=== PATIENT | male | born 1950 | race Hispanic/Latino ===

== ENCOUNTER 2023-10-08 22:08 | Emergency (ER) | payer MEDICARE, SELFPAY ==
[2023-10-08 22:11] VITALS: BP 167/125
[2023-10-08 22:18] VITALS: BP 167/125
[2023-10-08 22:39] LABS: Hematocrit 47.5 % (39.0-52.0); Mean Corp Hgb Conc. 33.7 g/dL (33.0-37.0); Mean Corpuscular Hgb 30.4 pg (27.0-31.0); Mean Corpuscular Volume 90.1 fL (80.0-94.0); Mean Platelet Volume 10.2 fL (7.4-10.4); Platelet Count 305 10^3/uL (130-400); Red Blood Cell Count 5.27 10^6/uL (4.70-6.10); Red Cell Dist. Width 12.5 % (11.5-14.5); White Blood Cell Count 11.7 10^3/uL (4.8-10.8)
[2023-10-08 23:00] VITALS: BP 119/69
[2023-10-08 23:02] LABS: Troponin I < 0.012 ng/ml
--- NOTE | 2023-10-08 23:13 | ED.GENMED ---
History of Present Illness
General
Chief Complaint: Change in Mental Status
Source: patient and records
Time Seen by Provider: 10/08/23 22:55
Travel History
Have you had any contact with someone who has COVID-19?: No
Do you have any symptoms of coronavirus? Fever > 100 degrees, chills, cough, shortness of breath, sore throat, loss of taste or smell, muscle aches, or headache?: No
History of Present Illness
History of Present Illness:
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 Patient
also has an extensive prior medical history. He was brought to our emergency department because he reportedly had an episode of agitation at the facility where he was transferred to. Patient is now calm and cooperative. He reports left-sided
chest pain without radiation, exacerbating, or relieving factors. It is not pleuritic in nature. It started approximately 3 hours ago. He denies dyspnea, nausea, vomiting, abdominal pain, neck pain, jaw pain, back pain. He does note discomfort
in the left shoulder and left knee. He reports recent fall when he was hospitalized in the other hospital, and points to healing scabs at the left lower extremity. He denies headache, dizziness, new numbness or tingling, fever, cough, sore throat,
rhinorrhea, or other complaints.
Past History
Past History
ED Past Medical History: Other (Hypertension, stroke, diabetes, peripheral arterial disease, CAD, A-fib, ischemic cardiomyopathy)
ED Past Surgical History: Other (Toe amputation)
Phy Exam
Physical Exam
Physical Exam:
GENERAL: Alert , in no apparent distress
EYE: pupils equal and reactive, no photophobia
NECK: Supple, no significant adenopathy.
ENT: o/p clr, mm dry
CARDIAC: Irregularly irregular, slight tachycardic
LUNGS: Clear breath sounds bilaterally, no acute respiratory distress, no wheezes rales or rhonchi noted
ABDOMEN: Soft, without focal tenderness, no r/g,
NEUROLOGICAL: Alert and oriented, no focal neuro deficits with the exception of residual left-sided weakness, speech is slightly slurred
SKIN: Warm and dry, skin intact. Healing scabs noted at left lower extremity without secondary infection
MUSCULOSKELETAL: No edema, well perfused.
PSYCH: Normal and appropriate interaction.
Course
Orders/Labs/Results
Orders:
Orders
10/08/23 22:20
EKG [Electrocardiogram (*1)] Urgent
Reason for Study: Atrial Fibrillation
EKG- Treatment ONCE
10/08/23 22:28
Alcohol Urgent
CMP [Comprehensive Metabolic Panel] Urgent
Complete Blood Count/No Diff Urgent
Troponin I Urgent
10/08/23 23:13
Add On- LAB Urgent
Tests Added?: depakote
10/08/23 23:37
Depakane Urgent
10/08/23 23:44
Add On- LAB Urgent
Tests Added?: alcohol
10/09/23 00:30
CT Head W/o Iv Contrast Stat
Reason For Exam: hx R MCA CVA, now ms change
10/09/23 01:27
UA Reflex to Culture [Urinalysis Reflex To Culture] Stat
Date Specimen was Collected: 10/09/23
Time Specimen was Collected: 01:25
10/09/23 02:45
Troponin I Urgent
Abnormal Lab Results
10/08/2324
22:28 01:27
WBC 11.7 H 10^3/uL
(4.8-10.8)
Chloride 94 L mmol/L
(98-107)
Carbon Dioxide 32 H mmol/L
(22-30)
Glucose 259 H mg/dl
(70-99)
Urine Ketones Trace A
(Negative)
Urine Glucose 3+ A
(Negative)
10/08/23 22:28
10/08/23 22:28
Vital Signs
Initial and Last Documented VS:
Initial Vital Signs
Temp Pulse Resp BP Pulse Ox
98.0 F 113 19 167/125 100
10/08/23 22:11 10/08/23 22:11 10/08/23 22:11 10/08/23 22:11 10/08/23 22:11
Last Documented Vital Signs
Temp Pulse Resp BP Pulse Ox
98.0 F 110 15 119/76 96
10/08/23 22:11 10/09/23 04:45 10/09/23 04:45 10/09/23 02:00 10/09/23 00:30
*Critical Care Note
Total Time (30-74mins, 75-104mins- exclusive of procedures): Not Applicable
Update Note
Update Note:
Patient presents to the Emergency Department with reported agitation____
Number and Complexity of Problems Addressed at the Encounter
� Chronic conditions affecting care:
� Acute Exacerbation and/or Progression of Chronic Illness:
� Differential Diagnosis includes: But not limited to intracerebral bleed, infection, electrolyte abnormality, medication effect, etc.
Amount and/or Complexity of Data to be Reviewed and Analyzed
� I performed an independent evaluation of and my interpretation is:
EKG: Read by me, A-fib with RVR, no acute ischemia
CT: Verbal report from vision radiology 'right MCA territory hypodensity with areas of internal hyperdensity which demonstrates mild mass effect. Findings could represent sequela of acute to subacute infarct with possible small
hemorrhagic transformation. Mild local mass effect. No significant midline shift. No hydrocephalus.'
Xrays:
Laboratory Studies: Generally unremarkable
Other:
� Review of other/old records reveals: Extensive review of patient's discharge from [facility], indicating his prior history as well as his presentation there of altered mental status left-sided facial droop and
left-sided weakness.
� Clinical information was obtained by an independent historian:
� Prescriptions/Medications Considered but not given:
� Further testing considered but not performed:
Risk of Complications and/or Morbidity or Mortality of Patient Management
� Social determinants of health affecting care: Patient is primarily Turkmen-speaking and history was obtained via hotel operations manager via language line.
� Discussion with other providers (PCP, Hospitalists, Consultants, etc):
� Escalation of care including admission/observation vs risk of discharge considered: Although CAT scan shows potential blood, small', his discharge paperwork notes that his MRI showed 'foci of hemorrhage'. In addition, it also
notes that patient has dysarthria which is what I am appreciating here. Therefore, it appears that his CAT scan and slurred speech noted here are consistent with his condition when he was at the other hospital, [facility]. Workup otherwise
unremarkable for acute etiology of his reported aggressiveness and his now complaints of chest pain. Will repeat his troponin to confirm no change.
308 AM Pt was resting comfortably, then asking RN for ?pain meds (She was not sure with language barrier). I again engaged interpretor, pt denies pain except R shoulder and L leg s/p fall at hospital, pain is mild. He is moreso concerned b/c he
hasn't had anything to eat, wants something to eat now. Of note, there are brusies and healing scabs at areas of his mild pain. No new sxs, declines pain meds.
418 am repeat troponin wnl, will d/c with close f/u, transportation arrangements being made.
427AM case d/w social staff worker at ..they describe pt as agitated earlier, taking clothes off, acting out...and family was under impression that pt needs restraints 24/7 which is part of reason pt sent here. Obviously, pt does not exhibit this behavior
in the hours he's been here, and is not a current threat to self or others. I do recommend increasing depakote dosing, a consideration when seen by his physician later this AM.
ED Attending Note
-
Portions of this chart may have been created with voice recognition software.� Occasional wrong word or��sound alike� substitutions may have occurred due to the inherent limitations of voice recognition software.
Discharge Plan
Departure
Patient Disposition: Home (Routine Discharge)
Date of Disposition: 10/09/23
Time of Disposition: 04:18
Patient with high blood pressure during this ER visit?: Yes
Condition: Good
Discharge Problem:
Agitation, Chest pain
Instructions: BLOOD PRESSURE, Chest Pain
Prescriptions:
No Action
clopidogrel 75 mg Tablet
75 mg PO DAILY
bisacodyl 10 mg Suppository
10 mg DC DAILYPRN PRN (Reason: if mom is ineffective)
colchicine 0.6 mg Tablet
0.3 mg PO DAILY
divalproex 125 mg Capsule, Delayed Rel Sprinkle
250 mg PO BID
cyclobenzaprine 5 mg Tablet
5 mg PO Q8H PRN (Reason: muscle spasms)
Hold Instructions: MD to decide if actually needs
apixaban 5 mg Tablet
5 mg PO BID
acetaminophen 325 mg Tablet
650 mg PO Q6H PRN (Reason: mild pain/fever>101)
magnesium hydroxide [Milk of Magnesia] 400 mg/5 mL Suspension
30 ml PO [id number] PRN (Reason: IF NO BM BY 3RD DAY)
tamsulosin 0.4 mg Capsule
0.4 mg PO QPM
metoprolol tartrate 50 mg Tablet
50 mg PO BID
Fleet Enema 19-7 gram/118 mL Enema
118 ml DC DAILY PRN (Reason: if suppository is ineffective)
gabapentin 300 mg Capsule
600 mg PO TID
Hold Instructions: pt had episode of unresponsiveness--med on hold--dose might need adjustment or stop altogether
furosemide 20 mg Tablet
20 mg PO DAILY
lisinopril 2.5 mg Tablet
2.5 mg PO DAILY
escitalopram oxalate 10 mg Tablet
10 mg PO DAILY
ezetimibe 10 mg Tablet
10 mg PO HS
rosuvastatin 40 mg Tablet
40 mg PO HS
empagliflozin 10 mg Tablet
10 mg PO DAILY
Hold Instructions: MD to decide if needs to restart--med currently on hold
lidocaine 4 % Adhesive Patch,Medicated
1 patch topical HS Qty: 5 0RF
insulin aspart U-100 100 unit/mL (3 mL) Insulin Pen
2 unit SC AC Qty: 0 0RF
Insulin Glargine Lantus [Lantus] 15 UNITS
Subcutaneous Insulin Syringe [Syringe-Insulin] 0 UNIT
As Directed mls/hr SC HS
Reason for use: Diabetes
Ordered By: Antionette Heller MD
Last Taken: Unknown
Referrals:
Ramy Nix, DO [Family Provider] -
Activity Restrictions/Additional Instructions:
PLEASE DISCUSS WITH [employer] TREATING PHYSICIAN THE OPTION OF INCREASING HIS DEPAKOTE DOSING. HIS LEVELS TODAY ARE ON THE LOW LEVEL OF THERAPEUTIC (58.7).
Interventions
Interventions:
*Risk Screen - Suicide Last Done: 10/08/23 22:11
*General Assessment Last Done: 10/08/23 22:11
*Neglect/Abuse Screening Last Done: 10/08/23 22:11
ED- Fall Risk Assessment Last Done: 10/09/23 04:54
*ED COVID-19 Vaccine History Last Done: 10/08/23 22:11
*Nursing Disposition Last Done: 10/09/23 04:54
ED- Neurological Assessment Last Done: 10/08/23 22:43
ED Swallowing Screen Last Done: 10/09/23 03:10
Discharge Date and Time
Discharge Date/Time: 10/09/23 05:23
[2023-10-08 23:14] LABS: ALT (SGPT) 23 U/L (0-50); AST (SGOT) 31 U/L (17-59); Albumin 4.1 g/dl (3.5-5.0); Alkaline Phosphatase 118 U/L (38-126); Blood Urea Nitrogen 20 mg/dl (9-20); Calcium 9.9 mg/dl (8.4-10.2); Carbon Dioxide 32 mmol/L (22-30); Chloride 94 mmol/L (98-107); Glucose 259 mg/dl (70-99); Potassium 4.8 mmol/L (3.5-5.1); Sodium 136 mmol/L (135-145); Total Protein 7.2 g/dl (6.3-8.2); eGFR > 60.00
[2023-10-08 23:46] VITALS: BMI 32.9
[2023-10-09 00:11] LABS: Depakane 58.7 ug/ml (50.0-120.0)
[2023-10-09 00:30] VITALS: BP 114/70
[2023-10-09 00:35] LABS: Alcohol None Detected
[2023-10-09 01:38] LABS: Urine Albumin Negative (Neg - Trace); Urine Bilirubin Negative (Negative); Urine Character Clear (Clear); Urine Color Yellow; Urine Glucose 3+ (Negative); Urine Ketone Trace (Negative); Urine Leukocyte Negative (Negative); Urine Nitrite Negative (Negative); Urine Occult Blood Negative (Negative); Urine Urobilinogen Negative (Neg - 1+)
[2023-10-09 02:00] VITALS: BP 119/76
[2023-10-09 03:21] LABS: Troponin I < 0.012 ng/ml
== END 2023-10-09 05:23 | disposition home or self-care (01) ==
LOC: EMR 22:08
PROVIDERS: EMERGENCY PHYSICIAN Emergency Medicine; FAMILY PHYSICIAN Internal Medicine
DX: R07.89 Other chest pain (principal); R45.1 Restlessness and agitation; I10 Essential (primary) hypertension
CPT/HCPCS: 99285; 70450; 80053; 80164; 81003; 82077; 84484; 85027; 93005

== ENCOUNTER 2023-10-12 16:26 | Inpatient (IN) | payer MEDICARE, SELFPAY ==
[2023-10-12] VITALS (13 sets, daily range): BP systolic 83–144; BP diastolic 54–103; BMI 30.1; BMI 29.6
[2023-10-12 11:51] LABS: Glucose - Point of Care 131 mg/dl (70-99)
[2023-10-12 12:24] LABS: % Basophils 0.4 % (0-2); % Eosinophils 0.4 % (0-6); % Immature Granulocytes 0.5 % (0-0.5); % Lymphocytes 18.1 % (20.5-51.1); % Monocytes 5.1 % (1.7-9.3); % Neutrophils 75.5 % (42.2-75.2); Absolute Basophils 0.1 10^3/uL (0-0.2); Absolute Eosinophils 0.1 10^3/uL (0-0.7); Absolute Immature Granulocytes 0.1 10^3/uL (0-0.05); Absolute Lymphocytes 2.9 10^3/uL (1.2-3.4); Absolute Monocytes 0.8 10^3/uL (0.1-0.6); Absolute Neutrophils 11.9 10^3/uL (1.4-6.5); Hematocrit 47.6 % (39.0-52.0); Hemoglobin 16.4 g/dL (13.0-18.0); Mean Corp Hgb Conc. 34.5 g/dL (33.0-37.0); Mean Corpuscular Hgb 30.5 pg (27.0-31.0); Mean Corpuscular Volume 88.6 fL (80.0-94.0); Mean Platelet Volume 10.4 fL (7.4-10.4); Nucleated Red Blood Cells % 0 % (-); Platelet Count 375 10^3/uL (130-400); Red Blood Cell Count 5.37 10^6/uL (4.70-6.10); Red Cell Dist. Width 12.3 % (11.5-14.5); White Blood Cell Count 15.7 10^3/uL (4.8-10.8)
[2023-10-12] MEDS: NSS 1000 IV ×2 (12:40→20:15)
[2023-10-12] MEDS: ZOFRAN 4 MG IV (12:42)
[2023-10-12 12:46] LABS: Lactic Acid 2.5 mmol/L (0.7-2.0)
[2023-10-12 13:35] LABS: ALT (SGPT) 23 U/L (0-50); AST (SGOT) 36 U/L (17-59); Albumin 3.9 g/dl (3.5-5.0); Alkaline Phosphatase 131 U/L (38-126); Blood Urea Nitrogen 25 mg/dl (9-20); Calcium 8.5 mg/dl (8.4-10.2); Carbon Dioxide 19 mmol/L (22-30); Chloride 102 mmol/L (98-107); Estimated Creatinine Clearance 70 ml/min; Glucose 133 mg/dl (70-99); Lipase 95 U/L (23-300); Potassium 4.8 mmol/L (3.5-5.1); Sodium 134 mmol/L (135-145); Total Bilirubin 1.2 mg/dl (0.2-1.3); Total Protein 6.8 g/dl (6.3-8.2); eGFR > 60.00
--- NOTE | 2023-10-12 13:36 | ED.GENMED ---
History of Present Illness
General
Chief Complaint: Abdominal Pain
Source: records and ambulance crew
Exam Limitations: clinical condition
Time Seen by Provider: 10/12/23 11:58
Travel History
Have you had any contact with someone who has COVID-19?: Unable to Answer
Do you have any symptoms of coronavirus? Fever > 100 degrees, chills, cough, shortness of breath, sore throat, loss of taste or smell, muscle aches, or headache?: No
History of Present Illness
History of Present Illness:
73-year-old male who recently presented to [facility]. Patient has been complaining of abdominal pain and rectal pain and began vomiting. EMS did note vomiting. Also found to be a little bit hypotensive. Patient is unable to contribute
significantly to his own history
Past History
Past History
ED Past Medical History: Other (Hypertension, stroke, diabetes, peripheral arterial disease, CAD, A-fib, ischemic cardiomyopathy)
ED Past Surgical History: Other (Toe amputation)
Phy Exam
Physical Exam
Physical Exam:
CONSTITUTIONAL Patient somnolent but responsive to voice. Vital signs reviewed.
HEAD atraumatic, normocephalic.
EYES eyelids normal to inspection, Extraocular muscles intact, Conjunctiva normal, Sclera normal.
NECK normal range of motion, Trachea midline, no jugular venous distention.
RESPIRATORY CHEST No respiratory distress noted, Chest expansion equal, Bilateral breath sounds clear.
CARDIOVASCULAR regular rate and rhythm, Heart sounds normal.
ABDOMEN mild diffuse tenderness, mild distention
UPPER EXTREMITY range of motion normal, Motor strength normal, no cyanosis, no edema.
LOWER EXTREMITY range of motion normal, Motor strength normal, no cyanosis, no edema.
NEURO Speech normal, No focal motor deficits, Webster coma scale 15, Memory normal, Cranial Nerves intact to screening exam.
SKIN skin warm, dry, and normal in color.
PSYCHIATRIC patient oriented to person place and time, Normal affect.
Course
Orders/Labs/Results
Orders:
Orders
10/12/23
Electrocardiogram (*1) Stat
Comment: DONE EMR
10/12/23 12:06
CT Abd/Pel (IV only)-DH only Urgent
Comment:
Reason For Exam: vomiting, abd pain
10/12/23 12:12
Complete Blood Count/With Diff Urgent
Lactic Acid Urgent
10/12/23 12:37
0.9% Sodium Chloride 500 ml [Nss] 500 ml IV BOLUS
Ondansetron Injectable [Zofran] 4 mg IV NOW STA
10/12/23 12:38
0.9% Sodium Chloride 1000 ml [Nss] 1,000 ml IV BOLUS
10/12/23 13:05
Comprehensive Metabolic Panel Urgent
Lipase Urgent
10/12/23 14:08
Straight cath- Treatment ONCE
10/12/23 14:30
Urinalysis Reflex To Culture Urgent
Date Specimen was Collected: 10/12/23
Time Specimen was Collected: 14:18
10/12/23 15:10
Piperacillin/Tazo 3.375 Gram [Zosyn] 3.375 gram in 50 ml IV NOW
10/12/23 15:15
Blood Culture Q30M
FLEX Source: Blood/Venous
Specimen Description:
10/12/23 15:45
Blood Culture Q30M
FLEX Source: Blood/Venous
Specimen Description:
Abnormal Lab Results
10/12/23 10/12/23 10/12/23
11:48 12:12 13:05
WBC 15.7 H 10^3/uL
(4.8-10.8)
Abs Immat Gran (auto) 0.1 H 10^3/uL
(0-0.05)
Absolute Neuts (auto) 11.9 H 10^3/uL
(1.4-6.5)
Absolute Monos (auto) 0.8 H 10^3/uL
(0.1-0.6)
Neutrophils % 75.5 H %
(42.2-75.2)
Lymphocytes % 18.1 L %
(20.5-51.1)
Sodium 134 L mmol/L
(135-145)
Carbon Dioxide 19 L mmol/L
(22-30)
BUN 25 H mg/dl
(9-20)
Glucose 133 H mg/dl
(70-99)
Lactic Acid 2.5 H mmol/L
(0.7-2.0)
Alkaline Phosphatase 131 H U/L
(38-126)
Urine Ketones
Urine Glucose
POC Glucose 131 H mg/dl
(70-99)
10/12/23
14:30
WBC
Abs Immat Gran (auto)
Absolute Neuts (auto)
Absolute Monos (auto)
Neutrophils %
Lymphocytes %
Sodium
Carbon Dioxide
BUN
Glucose
Lactic Acid
Alkaline Phosphatase
Urine Ketones 3+ A
(Negative)
Urine Glucose 3+ A
(Negative)
POC Glucose
10/12/23 12:12
10/12/23 13:05
Vital Signs
Initial and Last Documented VS:
Initial Vital Signs
Pulse Resp
105 23
10/12/23 11:50 10/12/23 11:50
Last Documented Vital Signs
Temp Pulse Resp BP Pulse Ox
97.5 F 96 19 98/54 97
10/12/23 11:55 10/12/23 13:30 10/12/23 13:30 10/12/23 13:00 10/12/23 14:32
MDM/Problems Addressed
MDM/Problems Addressed:
vomiting, possible colitis
*Radiology
Radiology exam reviewed: radiology read reviewed
*Pulse Oximetry
Patient hypoxic: no
*EKG
Interpreted by ED Provider?: Yes
Interpretation: abnormal
Rate: tachycardiac
Rhythm: a-fib
Ischemia: non-specific ST changes
*Therapeutic Case Manager Interpretation
Rate: tachycardiac
Interpretation: abnormal
Rhythm: a-fib
*Critical Care Note
Total Time (30-74mins, 75-104mins- exclusive of procedures): 40 minutes
Data Reviewed
Source: records and ambulance crew
Patient Management
Discussion with other providers: Hospitalist
Escalation/DeEscalation of care consider admission/obs:
73-year-old male presents with hypotension, vomiting and apparent abdominal pain. Blood pressure improved after IV fluids but lactic noted. CT noted. IV antibiotics. Check cultures. Cover with Zosyn. Admit
ED Attending Note
-
Portions of this chart may have been created with voice recognition software.� Occasional wrong word or��sound alike� substitutions may have occurred due to the inherent limitations of voice recognition software.
Discharge Plan
Departure
Patient Disposition: Admit
Date of Disposition: 10/12/23
Time of Disposition: 15:16
Admit to: Telemetry
Presentation/result/management discussed w/ accepting MD/DO: Hospitalist
Discharge Problem:
Vomiting, Acidosis, lactic
Prescriptions:
No Action
clopidogrel 75 mg Tablet
75 mg PO DAILY
bisacodyl 10 mg Suppository
10 mg GA DAILYPRN PRN (Reason: if mom is ineffective)
colchicine 0.6 mg Tablet
0.3 mg PO DAILY
divalproex 125 mg Capsule, Delayed Rel Sprinkle
250 mg PO BID
cyclobenzaprine 5 mg Tablet
5 mg PO Q8H PRN (Reason: muscle spasms)
apixaban 5 mg Tablet
5 mg PO BID
acetaminophen 325 mg Tablet
650 mg PO Q6H PRN (Reason: mild pain/fever>101)
insulin glargine 100 unit/mL Solution
32 unit SC HS
magnesium hydroxide [Milk of Magnesia] 400 mg/5 mL Suspension
30 ml PO [id number] PRN (Reason: IF NO BM BY 3RD DAY)
tamsulosin 0.4 mg Capsule
0.4 mg PO QPM
metoprolol tartrate 50 mg Tablet
50 mg PO BID
Fleet Enema 19-7 gram/118 mL Enema
118 ml GA DAILY PRN (Reason: if suppository is ineffective)
gabapentin 300 mg Capsule
600 mg PO TID
furosemide 20 mg Tablet
20 mg PO DAILY
insulin lispro 100 unit/mL Solution
2 unit SC AC
lisinopril 2.5 mg Tablet
2.5 mg PO DAILY
escitalopram oxalate 10 mg Tablet
10 mg PO DAILY
ezetimibe 10 mg Tablet
10 mg PO HS
rosuvastatin 40 mg Tablet
40 mg PO HS
empagliflozin 10 mg Tablet
10 mg PO DAILY
Referrals:
UNKNOWN,NO INTERVIEW [Family Provider] -
Interventions
Interventions:
*Risk Screen - Suicide Last Done: 10/12/23 11:44
*General Assessment Last Done: 10/12/23 11:44
*ED COVID-19 Vaccine History Last Done: 10/12/23 11:44
SY-Vamsbl-[id number] Assessment Last Done: 10/12/23 11:44
[2023-10-12 14:52] LABS: Urine Albumin Negative (Neg - Trace); Urine Bilirubin Negative (Negative); Urine Character Clear (Clear); Urine Color Yellow; Urine Glucose 3+ (Negative); Urine Ketone 3+ (Negative); Urine Leukocyte Negative (Negative); Urine Nitrite Negative (Negative); Urine Occult Blood Negative (Negative); Urine Urobilinogen Negative (Neg - 1+)
--- NOTE | 2023-10-12 15:20 | HPS.HSE ---
Addendum entered and electronically signed by Jack Leung MD 10/12/23 17:12:
I saw and examined the patient.
The [employer]AR[employer] SCI[employer]ORATORY TECHNICIAN's note was reviewed and I agree with the note.
73-year-old with history of A-fib on Eliquis, recent CVA with minimal left-sided residual weakness, IDDM, essential hypertension, ischemic cardiomyopathy, history of back surgery, hyperlipidemia was sent in from [facility] rehab after patient was
noted to having abdominal discomfort nausea and vomiting. Patient is Citizen Of [place]-speaking and family at bedside was able to provide limited information. Patient was in [facility] in [place] with new diagnosis of CVA. Post improvement patient was
discharged to [facility] on 08 October per my record reviews. Patient had difficult stay and some complaints regarding care. Spouse want patient to be placed in a different rehab. Unable to specify frequency of vomiting although did clarify that
was having excessive vomiting for 2 3 hours and was not able to keep medication down. No reported fever or change in bowel habits. No cardiopulmonary complaints.
HEENT: No pallor, cyanosis, or jaundice. Throat clear.
NECK: Supple. No JVD.
RESPIRATORY: Lungs clear to auscultation.
CVS: S1, S2 normal. RRR. No murmur, rub or gallop.
ABDOMEN: Soft, non-tender. No distension. BS+/normal.
EXTREMITIES: No peripheral cyanosis or edema.
PHARMACY BUYER: AOx3. LUE motor power 4/5.
Acute proctitis
Sepsis POA
-Patient complains of rectal pain
-CT abdomen pelvis showing circumferential wall thickening of rectum with possible diagnosis of inflammatory/infectious proctitis versus malignancy
-Some leukocytosis with associated tachycardia. No reported fever monitor T curve
-Got Zosyn in ER, continue
-CRS evaluation requested as well
Nausea/vomiting
-No signs of obstruction
-On IV Zosyn for proctitis
-Starting on trial of clear liquid diet and as needed Zofran ordered
Recent CVA
-Some left upper extremity weakness on exam.
-Records from [facility] to be obtained
Afib/rvr
-Could not tolerate oral medication in the morning. Restart metoprolol in evening
-Likely driven by sepsis
-Will involve cardiology if not improved in next 24-48 hrs
-Pt/ot eval, family wants different rehab
IDDM
- maintain on home regimen of lantus/ISS
Original Note:
Family Physician
-
Family Physician: NO INTERVIEW UNKNOWN
Chief Complaint
-
rectal pain
vomitting
History of Present Illness
73-year-old male with PMH for HTn, CVA, DM, CAD, atrial ischemic cardiomyopathy presented to us from [place] with rectal pain, abdominal pain associated with nausea and vomiting. patient and family concerned that he he is not getting good care
and not eating and drink since he got there. stated light headed and dizzy. feels like room is spinning. denied fever, chills, chest pain, sob. denied dysuria or hematuria
CT abdomen with 3.6 cm in length segment of mild circumferential wall thickening in the mid rectum. Diagnostic possibilities are (1) rectal adenocarcinoma, (2) infectious or inflammatory proctitis, or (3) under distention of the rectal lumen.
2. � Bilateral adrenal masses measuring 3.0 cm in size on the left and 1.2 cm in size on the right. Diagnostic possibilities are (1) benign adrenal tumors (adenomas) or (2) less likely malignancy (metastatic disease).
he did have elevated wbc, lactic. Received 2 L normal saline in ER. Patient also received Zosyn in ER. Admitting for further management.
Medical History
Past Medical History
Past Medical History: Reports Other
Additional Past Medical History:
Hypertension
CVA
Type 2 diabetes
Coronary artery disease
Atrial fibs
Ischemic cardiomyopathy
Past Surgical History: Reports Other
Additional Past Surgical History:
To amputation
Back surgery
Social History
Tobacco: Non-smoker
Alcohol: None
Drug: None
Personal:
Living: [facility]
Family History
Family History: Not pertinent
Allergies / Home Medications
Allergies reflects when Allergies were last updated in [facility].
Home Medications with original date entered in [facility]
Allergy/Medication List:
Allergies
Allergy/AdvReac Type Severity Reaction Status Date / Time
No Known Allergies Allergy Verified 10/08/23 23:46
Home Medications
acetaminophen 325 mg tablet 650 mg PO Q6H PRN mild pain/fever>101 10/08/23
apixaban 5 mg tablet 5 mg PO BID 10/08/23
bisacodyl 10 mg rectal suppository 10 mg [place] DAILYPRN PRN if mom is ineffective 10/08/23
clopidogrel 75 mg tablet 75 mg PO DAILY 10/08/23
colchicine 0.6 mg tablet 0.3 mg PO DAILY 10/08/23
cyclobenzaprine 5 mg tablet 5 mg PO Q8H PRN muscle spasms 10/08/23
divalproex 125 mg capsule,delayed release sprinkle 250 mg PO BID 10/08/23
empagliflozin 10 mg tablet 10 mg PO DAILY 10/08/23
escitalopram oxalate 10 mg tablet 10 mg PO DAILY 10/08/23
ezetimibe 10 mg tablet 10 mg PO HS 10/08/23
furosemide 20 mg tablet 20 mg PO DAILY 10/08/23
gabapentin 300 mg capsule 600 mg PO TID 10/08/23
insulin glargine 100 unit/mL subcutaneous solution 32 unit SC HS 10/08/23
insulin lispro 100 unit/mL subcutaneous solution 2 unit SC AC 10/08/23
lisinopril 2.5 mg tablet 2.5 mg PO DAILY 10/08/23
magnesium hydroxide 400 mg/5 mL oral suspension (Milk of Magnesia) 30 ml PO [id number] PRN IF NO BM BY 3RD DAY 10/08/23
metoprolol tartrate 50 mg tablet 50 mg PO BID 10/08/23
rosuvastatin 40 mg tablet 40 mg PO HS 10/08/23
sodium phosphates 19 gram-7 gram/118 mL enema (Fleet Enema) 118 ml [place] DAILY PRN if suppository is ineffective 10/08/23
tamsulosin 0.4 mg capsule 0.4 mg PO QPM 10/08/23
Review of Systems
-
Constitutional: Reports No Symptoms
EENT: Reports No Symptoms
Respiratory: Reports No Symptoms
Cardiac: Reports No Symptoms
Abdomen/GI: Reports Abdominal Pain, Nausea, Vomiting and Other (rectal pain)
: Reports No Symptoms
Musculoskeletal: Reports No Symptoms
Skin: Reports No Symptoms
Neurological: Reports No Symptoms
Endocrine: Reports No Symptoms
Hematologic/Lymphatic: Reports No Symptoms
Psych: Reports No Symptoms
Physical Exam
Vital Signs
Vital Signs
Temp Pulse Resp BP Pulse Ox
97.5 F 96 19 98/54 97
10/12/23 11:55 10/12/23 13:30 10/12/23 13:30 10/12/23 13:00 10/12/23 14:32
Physical Exam
General: Well Developed, Well Nourished and No Apparent Distress
HEENT: NormoCephalic, Moist mucous membranes and Atraumatic
Respiratory: Clear
Cardiac: S1/S2 and Regular Rhythm; No Murmur or Rub
GI: Soft, Non Tender, Non Distended and Normal Bowel Sounds; No Organomegaly
Rectal: Deferred by Provider
Musculoskeletal: No Clubbing, No Cyanosis and No Edema
Skin: No Rash
Neuro: AO x 3 and Nonfocal/grossly intact
Psych: Calm
Laboratory Results
-
10/12/23 12:12
10/12/23 13:05
Laboratory Results
Lactic Acid 2.5 mmol/L (0.7-2.0) H 10/12/23 12:12
Total Bilirubin 1.2 mg/dl (0.2-1.3) 10/12/23 13:05
AST 36 U/L (17-59) 10/12/23 13:05
ALT 23 U/L (0-50) 10/12/23 13:05
Alkaline Phosphatase 131 U/L (38-126) H 10/12/23 13:05
Lipase 95 U/L (23-300) 10/12/23 13:05
Data Reviewed
-
CT Scan: Report Reviewed by me
Lab Data: Labs Reviewed by me
Impression/Plan
-
# Abdominal pain/vomiting likely from rectal adenocarcinoma and infectious or inflammatory proctitis
-Sepsis as evident by WBC 15.7, lactic 2.5, hypertension, tachycardia
-Urinalysis negative
-CT abdomen pelvis with impression of 3.6 cm in length segment of mild circumferential wall thickening in the mid rectum. Diagnostic possibilities are (1) rectal adenocarcinoma, (2) infectious or inflammatory proctitis, or (3) under distention of
the rectal lumen.
2. � Bilateral adrenal masses measuring 3.0 cm in size on the left and 1.2 cm in size on the right. Diagnostic possibilities are (1) benign adrenal tumors (adenomas) or (2) less likely malignancy (metastatic disease).
3. � Moderately enlarged prostate gland.
4. � Small hiatal hernia.
5. � Moderate to severe pancreatic parenchymal atrophy (lipomatosis).
6. � Mild diffuse hepatic steatosis.
7. � Left-sided pelvic kidney.
8. � Severe atherosclerotic plaque in the abdominal aorta.
9. � Severe calcific atherosclerotic plaque in the coronary arteries.
10. � Chronic granulomatous disease infection in the chest.
-IV Zosyn continued
-Continue to trend lactic acid
-Monitor WBCs
-clear liquid diet
-colorectal consulted
# Metabolic acidosis likely dehydration
-CO2 15, BUN 25, sodium 134
-Received normal saline 2 L in ER
-Continue to monitor BMP
-normal saline continued
# Atrial for with RVR
-EKG with A-fib with RVR
-hold eliquis
-metoprolol continued with parameters
# Recent CVA
-Physical/Occupational Therapy consulted
-Plavix continued
#: Gout
-Colchicine continued
# Type 2 diabetes
-Sliding scale
-Hold empagliflozin
-glargine 10units at hs
#depression/anxiety
-celexa, divalproex
#hld
-zetia continued
#PAD
=gabapentin
#hxt of hypertension
-At present hypotensive
-Hold lisinopril, furosemide
# BPH
-Flomax continued
# DVT prophylaxis
-SCD
# CODE STATUS-full code
[2023-10-12] MEDS: ZOSYN 50 IV ×2 (15:59→22:43)
[2023-10-12 18:12] LABS: Lactic Acid 2.3 mmol/L (0.7-2.0)
--- NOTE | 2023-10-12 18:42 | PTCARENOTE ---
pt brought up from ED at change of shift. Rapid Afib 115-120's. C/O dizziness. [place] speaking, able to understand very little Irish. lungs diminished B/L on RA. Pt yelling out for water. round obese abd +[id number]. scattered scabs on LLE and LUE.
weak PP trace B/L LE edema. CB in reach.
[2023-10-12] MEDS: NOVOLOG FLEXPEN-LOW RESISTANCE SC (20:09)
[2023-10-12] MEDS: DEPAKOTE SPRINKLE 250 MG PO (20:15)
[2023-10-12] MEDS: FLOMAX 0.400000000000000022 MG PO (20:15)
[2023-10-12] MEDS: LOPRESSOR 50 MG PO (20:15)
[2023-10-12] MEDS: FLUSH (NSS) 2 FLUSH IV ×2 (20:16→22:43)
[2023-10-12 20:54] LABS: Lactic Acid 2.1 mmol/L (0.7-2.0)
[2023-10-12 21:02] LABS: Glucose - Point of Care 195 mg/dl (70-99)
--- NOTE | 2023-10-12 22:00 | PTCARENOTE ---
Admission questions completed via thumb sewer phone. AAOx3. Pt stated his primary care physician is Dione Madden.
[2023-10-12] MEDS: LANTUS 0.100000000000000006 UNITS SC (22:39)
[2023-10-12] MEDS: ZETIA 10 MG PO (22:43)
[2023-10-12] MEDS: NEURONTIN 600 MG PO (22:43)
[2023-10-12] MEDS: CRESTOR 40 MG PO (22:43)
[2023-10-12] MEDS: TYLENOL 650 MG PO (22:43)
[2023-10-13] VITALS (8 sets, daily range): BP systolic 96–155; BP diastolic 54–85; PULSE 95; O2SAT 97
[2023-10-13] MEDS: ZOSYN 50 IV ×4 (04:52→21:38)
[2023-10-13 07:35] LABS: Glucose - Point of Care 86 mg/dl (70-99)
[2023-10-13] MEDS: NOVOLOG FLEXPEN-LOW RESISTANCE SC (07:47)
[2023-10-13] MEDS: COLCHICINE 0.299999999999999989 MG PO (07:50)
[2023-10-13] MEDS: DEPAKOTE SPRINKLE 250 MG PO ×2 (07:50→20:21)
[2023-10-13] MEDS: PLAVIX 75 MG PO (07:50)
[2023-10-13] MEDS: NEURONTIN 600 MG PO ×3 (07:50→21:39)
[2023-10-13] MEDS: LEXAPRO 10 MG PO (07:51)
[2023-10-13] MEDS: LOPRESSOR 50 MG PO ×2 (07:51→20:21)
[2023-10-13 09:54] LABS: Hemoglobin 14.2 g/dL (13.0-18.0); Mean Corp Hgb Conc. 33.8 g/dL (33.0-37.0); Mean Corpuscular Hgb 30.8 pg (27.0-31.0); Mean Corpuscular Volume 91.1 fL (80.0-94.0); Mean Platelet Volume 10.2 fL (7.4-10.4); Platelet Count 338 10^3/uL (130-400); Red Blood Cell Count 4.61 10^6/uL (4.70-6.10); Red Cell Dist. Width 12.4 % (11.5-14.5)
[2023-10-13 10:31] LABS: Blood Urea Nitrogen 21 mg/dl (9-20); Calcium 8.5 mg/dl (8.4-10.2); Carbon Dioxide 23 mmol/L (22-30); Chloride 100 mmol/L (98-107); Estimated Creatinine Clearance 78 ml/min; Glucose 101 mg/dl (70-99); Potassium 4.3 mmol/L (3.5-5.1); Sodium 134 mmol/L (135-145); eGFR > 60.00
[2023-10-13 11:37] LABS: Glucose - Point of Care 228 mg/dl (70-99)
[2023-10-13 11:38] LABS: Glycohemoglobin (HgbA1c) 8.6 % (4.0-5.6)
--- NOTE | 2023-10-13 11:46 | CM ---
Addendum entered by VICKY PintoW 10/13/23 14:55:
Placed a call to [facility] as patient is not a reliable historian, per medical staff. Spoke with Fabiola one of his nurses who was able to provide some information for assessment.
Patient was only at the facility for a week. He is non-ambulatory and w/c bound. He is dependent with ADLs, personal care, bathing, dressing and toileting. Fabiola stated that he was an assist of one with all of the above.
He had to be fed, a pureed think liquid diet. He is incontinent of bowel and bladder.
He is dependent with all grooming.
He was an assist of 2 for bed mobility.
Per attending, family does not want patient to return to [place] and would like for facilities to be faxed in the [facility]. Will attempt to get a hold of patient's family.
Original Note:
Reviewed chart, patient is B[place]ian speaking only. Language line in room. Spoke with attending who stated that he spoke with family and they do not want patient to return to [facility] and would like for him to go to a SNF in [place].
Met with patient to obtain information for assessment. Patient would not wake up. Spoke with RN and gabriel who stated that they also had tried and patient would not wake up for them. Will attempt again later.
Patient will need auth prior to going to a SNF.
Plan: Case management will continue to follow and assist with discharge planning. Patient/family would like for a SNF in [facility].
[2023-10-13] MEDS: NSS 1000 IV (11:49)
[2023-10-13 11:57] LABS: Hepatitis C Antibody Negative (Negative)
--- NOTE | 2023-10-13 12:30 | W.PN.HOSP.TC ---
Today's Communication/Plan
-
for C-scope on Cathleen
Neuro eval
FL diet.
Assessment / Plan
Assessment / Plan
CT head 10/13
Continued evolution of large subacute right MCA territory infarct with hemorrhagic conversion, measuring up to 4.0 x 6.1 x 5.1 cm. This exerts mild mass effect on the underlying right lateral ventricle without significant midline shift or herniation.
The ventricles are otherwise normal in size, configuration, and position for age.� Stable old left occipital lobe infarct. Visualized paranasal sinuses are free of mucosal disease. No depressed calvarial fracture.
CT abd/pelvis
1. � 3.6 cm in length segment of mild circumferential wall thickening in the mid rectum. Diagnostic possibilities are (1) rectal adenocarcinoma, (2) infectious or inflammatory proctitis, or (3) under distention of the rectal lumen.
2. � Bilateral adrenal masses measuring 3.0 cm in size on the left and 1.2 cm in size on the right. Diagnostic possibilities are (1) benign adrenal tumors (adenomas) or (2) less likely malignancy (metastatic disease).
3. � Moderately enlarged prostate gland.
4. � Small hiatal hernia.
5. � Moderate to severe pancreatic parenchymal atrophy (lipomatosis).
6. � Mild diffuse hepatic steatosis.
7. � Left-sided pelvic kidney.
8. � Severe atherosclerotic plaque in the abdominal aorta.
9. � Severe calcific atherosclerotic plaque in the coronary arteries.
10. � Chronic granulomatous disease infection in the chest.

Acute proctitis
Sepsis POA
R/o Rectal/terminal colon malignancy
-Patient complains of rectal pain
-CT abdomen pelvis showing circumferential wall thickening of rectum with possible diagnosis of inflammatory/infectious proctitis versus malignancy
-Some leukocytosis with associated tachycardia.� No reported fever monitor T curve
-Got Zosyn in ER, continue
-CRS evaluated and possible question of rectal/colon cancer , will plan to do C-scope on
Nausea/vomiting -resolved
-No signs of obstruction
-On IV Zosyn for proctitis
-start on FL diet.
Right parietal lobe CVA with hemorrhage
-Some left upper extremity weakness on exam.
-Records from [facility] to be obtained
-CT head 10/13 showing evolving right parietal lobe stroke
-Discussed with neuro and recommended to resume eliquis/plavix post procedure.
Afib/RVR
-Could not tolerate oral medication in the morning.� Restart metoprolol in evening
-Likely driven by sepsis
-Will involve cardiology if not improved in next 24-48 hrs
-Pt/ot eval, family wants different rehab
IDDM
- maintain on home regimen of lantus/ISS
HLD
Obesity
Essential HTN
Chronic leg swelling
DVTPPX- eliquis - on hold
Full code
Care plan discussed with neurology and CRS
Total time spent : 53 mins
Anticipated Discharge: > 48 hours
Subjective/Interval History
-
Date of Service: October 13, 2023
sleeping comfortably in bed
no issues overnight
Objective Data
-
Labs:
Laboratory Results
10/13/23 10/13/23
09:33 09:34
WBC 10.0
Hgb 14.2
Hct 42.0
Plt Count 338
Sodium 134 L
Potassium 4.3
Chloride 100
Carbon Dioxide 23
BUN 21 H
Creatinine 0.9
Glucose 101 H
Calcium 8.5
Vital Signs:
Vital Signs
Temp Pulse Resp BP Pulse Ox
98.8 F 82 17 99/64 95
10/13/23 10:55 10/13/23 10:55 10/13/23 10:55 10/13/23 10:55 10/13/23 10:55
I&O
10/12/23 10/13/23 10/14/23
06:59 06:59 06:59
Intake Total 1730 / 1730
Output Total 750 / 750
Balance 980 / 980
Review of Systems
-
Unable to obtain full review of systems at this time due to: Language Barrier
Physical Exam
-
General: Comfortable; Negative Appears in Distress
HEENT: Negative Oxygen
Respiratory: Clear to Auscultation
Cardiac: Regular Rhythm and S1/S2; Negative Murmur
GI: Soft and Nontender
Musculoskeletal: No Edema
Neuro: Awake, Alert, Oriented and No Motor Deficits
--- NOTE | 2023-10-13 14:04 | CON.CRS ---
Addendum entered and electronically signed by Keith Gomez MD 10/13/23 16:01:
I saw and examined the patient.
The PA's note was reviewed and I agree with the note.
Comment:
Seen in a.m. with PA.
History, vitals, labs, imaging reviewed. Patient seen and examined with the help of the telephone public affairs director.
73-year-old male who is recovering from a CVA at rehab and is on Eliquis and Plavix, who came into the hospital with nausea and vomiting. Denies pain. Admits to some bowel function. CT of the abdomen and pelvis reveals area of thickening of mid
rectum of unclear significance. Possibilities include tumor versus segmental proctitis versus underdistention/spasm. No radiographic evidence for large or small bowel obstruction. The patient has not undergone colonoscopies in the past. Denies
family history of colon cancer. Discussion was had with the patient at the bedside and I recommended that he stay on clears for now, that the blood thinners get held, and that we shoot for tentatively for a colonoscopy to sort this out
further. He is agreeable to this. As an aside, he has a head CT which seems to show hemorrhagic CVA, and neurology input would be reasonable before proceeding with a colonoscopy. I did attempt via phone to correspond with the patient's daughter,
his next of kin. I left a voicemail.
Thanks.
Original Note:
Consultation
-
Date/Time Consultation Requested: 10/13/2023, 16:00
Date/Time Consultation Performed: 10/13/2023, 9:30
Requesting Provider: Roxanne Hines CRNP
Performing Provider: Keith Gomez MD
Reason for Consultation: wall thickening in the mid rectum
Medical History
-
Chief Complaint: nausea/vomiting
History of Present Illness:
Language line used to perform consultation
73-year-old male presents from a [facility] with rectal pain, nausea and vomiting. The patient had recently been discharged from the outside hospital with a diagnosis of a right MCA CVA and was started on Eliquis and Plavix. The patient had a
period of agitation a few days ago while at [facility] and was sent to [place] ER on 10/09/2023. He underwent a CT of the head which showed evolution of the right MCA infarct with some hemorrhagic conversion. The patient was sent back to his
facility after evaluation. He was again brought to the ER yesterday due to complaints of nausea and vomiting and rectal pain. CT of the abdomen and pelvis performed in the ER showed a 3.6 cm segment of mild circumferential wall thickening in the
mid rectum, possibilities include rectal adenocarcinoma or infectious/inflammatory proctitis. There were also bilateral adrenal masses measuring 3 cm in size on the left and 1.2 cm in the right diagnostic possibilities are benign adrenal tumors or
less likely metastatic disease. We have been consulted for further surgical opinion.
Past Medical History
Past Medical History: CAD, CVA, HTN, NIDDM and Other (Atrial fibrilliation, Ischemic cardiomyopathy)
Past Surgical History: Orthopedic (toe amputation)
Social History
Tobacco: Non-Smoker
Alcohol: None
Drug: None
Family History
Family History: Reviewed & Not Pertinent
Allergies / Home Medications
Allergy/AdvReac Type Severity Reaction Status Date / Time
No Known Allergies Allergy Verified 10/08/23 23:46
Medication Instructions Recorded Confirmed Type
acetaminophen 325 mg tablet 650 mg PO Q6H PRN mild 10/08/23 10/12/23 History
pain/fever>101
apixaban 5 mg tablet 5 mg PO BID Blood Clot 10/08/23 10/12/23 History
Prevention/Tx
bisacodyl 10 mg rectal suppository 10 mg [place] DAILYPRN PRN if mom is 10/08/23 10/12/23 History
ineffective
clopidogrel 75 mg tablet 75 mg PO DAILY Blood Clot 10/08/23 10/12/23 History
Prevention/Tx
colchicine 0.6 mg tablet 0.3 mg PO DAILY gout 10/08/23 10/12/23 History
cyclobenzaprine 5 mg tablet 5 mg PO Q8H PRN muscle spasms 10/08/23 10/12/23 History
divalproex 125 mg capsule,delayed 250 mg PO BID Mental Health/Anxiety 10/08/23 10/12/23 History
release sprinkle
empagliflozin 10 mg tablet 10 mg PO DAILY Diabetes 10/08/23 10/12/23 History
escitalopram oxalate 10 mg tablet 10 mg PO DAILY depression 10/08/23 10/12/23 History
ezetimibe 10 mg tablet 10 mg PO HS High Cholesterol 10/08/23 10/12/23 History
furosemide 20 mg tablet 20 mg PO DAILY Fluid 10/08/23 10/12/23 History
Retention/Swelling
gabapentin 300 mg capsule 600 mg PO TID Pain 10/08/23 10/12/23 History
insulin glargine 100 unit/mL 32 unit SC HS Diabetes 10/08/23 10/12/23 History
subcutaneous solution
insulin lispro 100 unit/mL 2 unit SC AC Diabetes 10/08/23 10/12/23 History
subcutaneous solution
lisinopril 2.5 mg tablet 2.5 mg PO DAILY Blood Pressure 10/08/23 10/12/23 History
magnesium hydroxide 400 mg/5 mL 30 ml PO [id number] PRN IF NO BM BY 10/08/23 10/12/23 History
oral suspension (Milk of Magnesia) 3RD DAY
metoprolol tartrate 50 mg tablet 50 mg PO BID Blood Pressure 10/08/23 10/12/23 History
rosuvastatin 40 mg tablet 40 mg PO HS High Cholesterol 10/08/23 10/12/23 History
sodium phosphates 19 gram-7 118 ml [place] DAILY PRN if suppository 10/08/23 10/12/23 History
gram/118 mL enema (Fleet Enema) is ineffective
tamsulosin 0.4 mg capsule 0.4 mg PO QPM Urinary Issue 10/08/23 10/12/23 History
Review of Systems
-
History Source: Patient and Transfer Record
Abdomen/GI: Nausea and Vomiting
: Other (rectal pain)
A 10 point review of systems was completed, and was negative except as per HPI.
Physical Exam
Vital Signs
Temp 98.8 F 10/13/23 10:55
Pulse 82 10/13/23 10:55
Resp Rate 17 10/13/23 10:55
Blood pressure 99/64 10/13/23 10:55
SaO2 95 10/13/23 10:55
10/12/23 10/13/23 10/14/23
06:59 06:59 06:59
Actual Weight 98.883 kg
Body Mass Index (BMI) 29.6
Lab Results / Allergies
10/13/23 09:34
10/13/23 09:33
WBC 10.0 10^3/uL (4.8-10.8) 10/13/23 09:34
Hgb 14.2 g/dL (13.0-18.0) 10/13/23 09:34
Hct 42.0 % (39.0-52.0) 10/13/23 09:34
Plt Count 338 10^3/uL (130-400) 10/13/23 09:34
Abs Immat Gran (auto) 0.1 10^3/uL (0-0.05) H 10/12/23 12:12
Neutrophils % 75.5 % (42.2-75.2) H 10/12/23 12:12
Allergy/AdvReac Type Severity Reaction Status Date / Time
No Known Allergies Allergy Verified 10/08/23 23:46
Physical Exam
General: Well Developed, Well Nourished, No Apparent Distress and Comfortable
GI: Soft, Non Tender and Non Distended
Neuro: Awake, Alert and Oriented
Psych: Calm
Data Reviewed
-
CT Scan: Image Personally Visualized and interpreted and Report Reviewed by me
Labs: Labs Reviewed by me and Discussed with Physician
Old Records: Reviewed
Assessment / Plan
-
Assessment: 73-year-old male with history of a recent right MCA infarct on Xarelto and Plavix, with a finding of mild circumferential wall thickening in the mid rectum found on CT
Plan: Recommend holding Plavix for now. Tentatively will plan on performing a colonoscopy next , 09/25/2023 to further examine the mid rectal area. Remain on clears at this time. We will touch base with his next of kin. Recommend neurology
consultation given recent right MCA infarct on CT with some hemorrhagic conversion.
--- NOTE | 2023-10-13 14:33 | CON.NEURO4 ---
Addendum entered and electronically signed by Dale Cedillo MD 10/13/23 16:22:
Studies reviewed.
I have personally examined the patient. I reviewed and agree with the OCCUPATIONAL HEALTH TECHNICIAN's Note.
My addenda:
Awake, alert, interactive. No acute distress.
Speech intact.
Unable to follow 2-step requests w/o difficulty. No tremor.
Extra-ocular movements grossly intact.
Facial movements full and symmetric. Hearing intact to normal conversational volume.
Normal UE movements bilaterally.
Neck: full ROM.
Chest: no dyspnea
Heart: no JVD
Ext: (-) Clubbing, (-) Cyanosis, (-) Edema
IMPRESSIONS/RECOMMENDATIONS:
Abrupt onset of abdominal dysfunction
With recent right middle cerebral artery ischemic stroke. There are some indications of hemorrhage at the time of ischemic injury
Based on recent evaluation at a [facility] stroke resource center, would not discontinue the patient's combined apixaban and clopidogrel until medical records suggest the alternative should be pursued
Continue divalproex
Continue escitalopram
Continue rosuvastatin
D/W patient / family
Will continue to follow pending results.
Original Note:
Documented by User: Amie Bang NP 10/13/23 15:20
Consultation - Neurology 4
-
CONSULTING PHYSICIAN: Dale Cedillo MD
REFERRING PHYSICIAN: Hospitalists/Dr. Leung
DICTATED BY: KAYDEN Bruner
DATE/TIME OF REQUEST: 10/13/23
DATE/TIME OF CONSULTATION: 10/13/23
Reason for Consultation: CVA with hemorrhagic conversion
History of Present Illness:
This is a 73-year-old male who has presented to the hospital from [facility] with report of nausea, vomiting, and rectal pain. This information is obtained from the patient and his family, we do not have any medical records available. Patient
presented to [facility] about one week ago (around 10/06/23) after collapsing on his left side at home. He was found to have a large ischemic R MCA territory stroke. He was discharged to [facility] rehab a few days later on Eliquis 5mg
BID and Plavix 75mg daily. He presented here on 10/09/23 with report of a fall out of bed and agitation. CT head was obtained and demonstrates a right MCA ischemic stroke with hemorrhagic conversion and an old left occipital ischemic stroke. Patient
was discharged back to [facility] but returned to the ER on 10/12/23 due to nausea, vomiting, and rectal pain. CT abd/pelvis was obtained demonstrates a segment of rectal wall thickening concerning for adenocarcinoma vs proctitis in addition to
bilateral adrenal masses. CT Head was obtained and appears stable from CT head on 10/09/23. Neurology is consulted to confirm stability and evaluation of the safety of patient's use of Eliquis and Plavix. Currently, patient endorses left-sided
weakness and mild neck ache. He denies any headache, dizziness, vision changes, speech/swallow difficulty, numbness, chest pain, palpitations, and shortness of breath.
Past Medical History: Afib, HTN, HLD, CAD, ischemic cardiomyopathy, NIDDM, gout, anxiety, depression
Surgical History: toe amputation
Family History: Reviewed and noncontributory.
Social History: Denies tobacco, alcohol, and illicit drug use.
Allergies: No known allergies.
Home Medications: See below.
Review of Symptoms:
Patient denies any fever, headache, chest pain, shortness of breath, GI or symptoms.
�Per the HPI.�All systems are reviewed negative except above.
Physical Exam:
The patient is afebrile, abdomen is nondistended, breathing is unlabored, skin is warm and dry, no edema.
NIH Stroke Scale:
I performed the NIH stroke scale on the patient on 10/13/23 at 1440. The patient scored 5 points on the NIH stroke scale assessment, which were assigned as follows: See below.
Neurologic Examination:
The patient is awake, alert and oriented x 3. He is able to follow commands and answer questions appropriately. There is no aphasia or dysarthria. On cranial nerve assessment, pupils are 3 mm bilateral, round and reactive to light and
accommodation. Visual espinal are challenging to assess but appear full. Extraocular movements are intact. Facial sensations are intact and bilaterally symmetrical, there is no facial asymmetry. Hearing is intact bilaterally to normal conversation
volume. Tongue palate and uvula are midline. Sternocleidomastoid strengths are full bilaterally. Motor strengths are 5/5 right upper and lower, 4-/5 LUE, and 3/5 LLE on medical research [place] scale. There is drift in the LUE and immediate drift in
the LLE. No involuntary movement noted. Deep tendon reflexes are 1+ bilateral upper and lower extremities and Babinski is absent bilaterally. There was no extinction noted on double simultaneous stimulation. Coordination is intact by finger to nose
bilaterally.
Lab Results: See below.
Neuro Imaging:
1. CT Head 10/09/23: Findings consistent with right MCA infarct. Small amount of internal hemorrhagic conversion. Mild mass effect on adjacent sulci, without midline shift.
Old infarct in the left occipital lobe. Atrophy and suspected small vessel ischemic change.
2. CT Head 10/13/23: Continued evolution of right MCA territory infarct with hemorrhagic conversion.
Differentials for the patient's presentation include:
1. Subacute R MCA territory ischemic stroke with hemorrhagic conversion, appears stable.
2. Old left occipital ischemic stroke.
3. Concern for rectal carcinoma.
Recommendations:
-Records requested from [facility].
-Recommend continuing Eliquis 5mg BID and Plavix 75mg daily until records can be reviewed.
-Very high risk to hold anticoagulation at this point given large stroke one week ago.
-LDL goal <70. Lipid panel pending. Continue rosuvastatin 40mg daily and ezetimibe 10mg daily.
-Goal normoglycemia, hbA1c is 8.6.
-Provide patient with a stroke education packet.
-DVT prophylaxis.
-Please contact our Neurology Service with any questions/concerns.
Discussed patient care with: Dr. Cedillo, the patient, patient's family
NIH Stroke Score
Subsequent NIH Scale
Date of Subsequent NIH Scale: 10/13/23
Time of Subsequent NIH Scale: 14:40
NIH Stroke Score
Level of Consciousness: 0 - Alert
LOC Questions: 0-Answers both correctly
LOC Commands: 0-Performs both correctly
Best Horizontal Gaze: 0-Normal
Visual Espinal: 0=Normal, no visual loss
Facial Palsy: 0=Normal, symmetrical
Motor - Right Arm: 0=No drift 10 seconds
Motor - Left Arm: 1=Drift < 10 seconds
Motor - Right Le-No drift 5 seconds
Motor - Left Le-Partial vs. gravity
Limb Ataxia: 2-Present in two limbs
Sensation: 0-Normal
Best Language: 0-No aphasia
Dysarthria: 0-Normal
Extinction and Inattention: 0-No abnormality
Total Score:: 5
Vital Signs and Labs
-
Vital Signs and Labs:
Vital Signs
Temp Pulse Resp BP Pulse Ox
98.8 F 82 17 99/64 95
10/13/23 10:55 10/13/23 10:55 10/13/23 10:55 10/13/23 10:55 10/13/23 10:55
Lab Results
10/13/23 09:34
10/13/23 09:33
Sodium 134 mmol/L (135-145) L 10/13/23 09:33
Potassium 4.3 mmol/L (3.5-5.1) 10/13/23 09:33
BUN 21 mg/dl (9-20) H 10/13/23 09:33
Glucose 101 mg/dl (70-99) H 10/13/23 09:33
Calcium 8.5 mg/dl (8.4-10.2) 10/13/23 09:33
Medications
-
Active Medications
Generic Name Dose Route Start Last Admin
Trade Name Freq PRN Reason Stop Dose Admin
Acetaminophen 650 mg 10/12/23 18:25 10/12/23 22:43
Acetaminophen 325 Mg Tablet PO 11/09/23 18:24 650 mg
Q6HPRN PRN Administration
mild pain/fever>101
Clopidogrel Bisulfate 75 mg 10/13/23 08:00 10/13/23 07:50
Clopidogrel 75 Mg Tablet PO 11/10/23 07:59 75 mg
DAILY GRETTA Administration
Colchicine 0.3 mg 10/13/23 08:00 10/13/23 07:50
Colchicine 0.6 Mg Tablet PO 11/10/23 07:59 0.3 mg
DAILY GRETTA Administration
Dextrose 12.5 grams 10/12/23 18:25
Dextrose 50% (0.5 Grams/Ml) 50 Ml Syringe IV 11/09/23 18:24
[id number] PRN
hypoglycemia
Protocol
Divalproex Sodium 250 mg 10/12/23 20:00 10/13/23 07:50
Divalproex Sodium 125 Mg Sprinkle Capsule PO 11/09/23 19:59 250 mg
BID GRETTA Administration
Ezetimibe 10 mg 10/12/23 22:00 10/12/23 22:43
Ezetimibe (Zetia) 10 Mg Tablet PO 11/09/23 21:59 10 mg
HS GRETTA Administration
Escitalopram Oxalate 10 mg 10/13/23 08:00 10/13/23 07:51
Escitalopram 10 Mg Tablet PO 11/10/23 07:59 10 mg
DAILY GRETTA Administration
Gabapentin 600 mg 10/12/23 22:00 10/13/23 07:50
Gabapentin 300 Mg Capsule PO 11/09/23 21:59 600 mg
TID GRETTA Administration
Glucagon 1 mg 10/12/23 18:25
Glucagon 1 Mg Vial IM 11/09/23 18:24
PRN PRN
hypoglycemia
Protocol
Sodium Chloride 1,000 mls @ 75 mls/hr 10/12/23 18:25 10/13/23 11:49
Nss IV 1,000 mls
.[id number] GRETTA Administration
Piperacillin Sod/Tazobactam Sod 3.375 gram in 50 mls @ 100 mls/hr 10/12/23 22:00 10/13/23 09:53
Zosyn IV 50 mls
Q6H GRETTA Administration
Insulin Glargine 10 units/ 0.1 mls @ 0 mls/hr 10/12/23 22:00 10/12/23 22:39
Device SC 11/09/23 21:59 0.1 mls
HS GRETTA Administration
As Directed
Insulin Aspart 0 units 10/12/23 18:25 10/13/23 07:47
Insulin Aspart Low Resistance 300 Units/3 Ml Pen.Injctr SC 11/09/23 18:24 Not Given
AC GRETTA
Protocol
Metoprolol Tartrate 50 mg 10/12/23 20:00 10/13/23 07:51
Metoprolol 50 Mg Regular Release Tablet PO 11/09/23 19:59 50 mg
BID RGETTA Administration
Rosuvastatin Calcium 40 mg 10/12/23 22:00 10/12/23 22:43
Rosuvastatin (Crestor) 40 Mg Tablet PO 11/09/23 21:59 40 mg
HS GRETTA Administration
Sodium Chloride 0 flush 10/12/23 19:00 10/12/23 22:43
Sodium Chloride 0.9% (Flush) Syringe IV 11/09/23 18:59 2 flush
PER PROTOCOL GRETTA Administration
Tamsulosin HCl 0.4 mg 10/12/23 18:25 10/12/23 20:15
Tamsulosin 0.4 Mg Capsule PO 11/09/23 18:24 0.4 mg
QPM GRETTA Administration
Home Medications
Medication Instructions Recorded
acetaminophen 325 mg tablet 650 mg PO Q6H PRN mild 10/08/23
pain/fever>101
apixaban 5 mg tablet 5 mg PO BID Blood Clot 10/08/23
Prevention/Tx
bisacodyl 10 mg rectal suppository 10 mg IA DAILYPRN PRN if mom is 10/08/23
ineffective
clopidogrel 75 mg tablet 75 mg PO DAILY Blood Clot 10/08/23
Prevention/Tx
colchicine 0.6 mg tablet 0.3 mg PO DAILY gout 10/08/23
cyclobenzaprine 5 mg tablet 5 mg PO Q8H PRN muscle spasms 10/08/23
divalproex 125 mg capsule,delayed 250 mg PO BID Mental Health/Anxiety 10/08/23
release sprinkle
empagliflozin 10 mg tablet 10 mg PO DAILY Diabetes 10/08/23
escitalopram oxalate 10 mg tablet 10 mg PO DAILY depression 10/08/23
ezetimibe 10 mg tablet 10 mg PO HS High Cholesterol 10/08/23
furosemide 20 mg tablet 20 mg PO DAILY Fluid 10/08/23
Retention/Swelling
gabapentin 300 mg capsule 600 mg PO TID Pain 10/08/23
insulin glargine 100 unit/mL 32 unit SC HS Diabetes 10/08/23
subcutaneous solution
insulin lispro 100 unit/mL 2 unit SC AC Diabetes 10/08/23
subcutaneous solution
lisinopril 2.5 mg tablet 2.5 mg PO DAILY Blood Pressure 10/08/23
magnesium hydroxide 400 mg/5 mL 30 ml PO [id number] PRN IF NO BM BY 10/08/23
oral suspension (Milk of Magnesia) 3RD DAY
metoprolol tartrate 50 mg tablet 50 mg PO BID Blood Pressure 10/08/23
rosuvastatin 40 mg tablet 40 mg PO HS High Cholesterol 10/08/23
sodium phosphates 19 gram-7 118 ml IA DAILY PRN if suppository 10/08/23
gram/118 mL enema (Fleet Enema) is ineffective
tamsulosin 0.4 mg capsule 0.4 mg PO QPM Urinary Issue 10/08/23

Documented by User: Dale Cedillo MD 10/13/23 16:12
NIH Stroke Score
NIH Stroke Score
Total Score:: 5
[2023-10-13] MEDS: NOVOLOG FLEXPEN-LOW RESISTANCE 1 UNITS SC (14:55)
[2023-10-13 16:42] LABS: Glucose - Point of Care 289 mg/dl (70-99)
[2023-10-13] MEDS: FLOMAX 0.400000000000000022 MG PO (17:28)
[2023-10-13] MEDS: NOVOLOG FLEXPEN-LOW RESISTANCE 3 UNITS SC (17:29)
[2023-10-13] MEDS: TYLENOL 650 MG PO (20:21)
[2023-10-13] MEDS: ZETIA 10 MG PO (21:39)
[2023-10-13] MEDS: LANTUS 0.100000000000000006 UNITS SC (21:39)
[2023-10-13] MEDS: CRESTOR 40 MG PO (21:39)
[2023-10-13 21:41] LABS: Glucose - Point of Care 208 mg/dl (70-99)
--- NOTE | 2023-10-13 23:00 | PTCARENOTE ---
Pt complained of 5/10 pain throughout right shoulder. CIVIL DIVISION COMMANDER DEPUTY SHERIFF made aware, new orders provided, see MAR. Will continue to monitor.
[2023-10-13] MEDS: ULTRAM 25 MG PO (23:16)
[2023-10-13] MEDS: LIDOCAINE 4% PATCH 1 PATCH TOPICAL (23:17)
--- NOTE | 2023-10-14 01:00 | PTCARENOTE ---
LUE displayed +2 generalized edema. Fluids paused. IV team notified. IV team assessed L hand IV site at bedside, informed this RN IV site ok to use. LUE elevated on pillow and fluids restarted.
[2023-10-14 03:30] VITALS: BP 118/60
[2023-10-14] MEDS: ZOSYN 50 IV ×4 (04:25→23:20)
[2023-10-14] MEDS: NSS IV (04:25)
--- NOTE | 2023-10-14 05:40 | DOWNTIME ---
There was a REEL Qualified Client Catering And Events Manager Downtime on 10/14/2023 from 0111 to 10/14/2023 at 0405. Downtime documentation of patient's care, including medication administrations, has been reconciled in the electronic record per guidelines. Refer to the
patient's paper chart under the miscellaneous tab to see printed paper medication records and downtime forms.
[2023-10-14 06:35] LABS: Hematocrit 39.6 % (39.0-52.0); Hemoglobin 13.3 g/dL (13.0-18.0); Mean Corp Hgb Conc. 33.6 g/dL (33.0-37.0); Mean Corpuscular Hgb 30.3 pg (27.0-31.0); Mean Corpuscular Volume 90.2 fL (80.0-94.0); Mean Platelet Volume 10.2 fL (7.4-10.4); Platelet Count 306 10^3/uL (130-400); Red Blood Cell Count 4.39 10^6/uL (4.70-6.10); Red Cell Dist. Width 12.5 % (11.5-14.5); White Blood Cell Count 8.1 10^3/uL (4.8-10.8)
[2023-10-14 06:57] LABS: Blood Urea Nitrogen 18 mg/dl (9-20); Calcium 8.2 mg/dl (8.4-10.2); Carbon Dioxide 26 mmol/L (22-30); Chloride 106 mmol/L (98-107); Estimated Creatinine Clearance 78 ml/min; Glucose 123 mg/dl (70-99); HDL Cholesterol 31 mg/dl; LDL Cholesterol, Calculated 23 mg/dl; Potassium 4.1 mmol/L (3.5-5.1); Sodium 135 mmol/L (135-145); Total Cholesterol 70 mg/dl (50-199); Triglyceride 83 mg/dl (10-149); Very Low Density Lipoprotein 16 mg/dl (0-30); eGFR > 60.00
[2023-10-14 07:42] VITALS: BP 107/75
[2023-10-14 07:57] LABS: Glucose - Point of Care 132 mg/dl (70-99)
[2023-10-14] MEDS: NOVOLOG FLEXPEN-LOW RESISTANCE SC ×2 (08:10→15:36)
[2023-10-14] MEDS: TYLENOL 650 MG PO (08:51)
[2023-10-14] MEDS: NEURONTIN 600 MG PO ×3 (08:52→23:26)
[2023-10-14] MEDS: LOPRESSOR 50 MG PO ×2 (08:52→23:34)
[2023-10-14] MEDS: COLCHICINE 0.299999999999999989 MG PO (08:53)
[2023-10-14] MEDS: DEPAKOTE SPRINKLE 250 MG PO ×2 (08:53→23:24)
[2023-10-14] MEDS: LEXAPRO 10 MG PO (08:55)
--- NOTE | 2023-10-14 10:19 | W.PN.CRS1 ---
Today's Communication / Plan
-
Prep today
Clear liquid diet
N.p.o. midnight
colonoscopy tomorrow
Assessment/Plan
-
Assessment: 73-year-old male with history of a recent right MCA infarct on Xarelto and Plavix, with a finding of mild circumferential wall thickening in the mid rectum found on CT
Plan:
1. Will plan for colonoscopy tomorrow afternoon with Dr. Gomez.
2. Remain on clears today. N.p.o. at midnight.
3. Will need to undergo a bowel prep today.
4. Remain off anticoagulation until after procedure.
5. Appreciate neurology consult.
6. Discussed with primary. Will call family later this afternoon.
Subjective Data
Subjective Data
Date of Service: October 14, 2023
Subjective was obtained by Dr. Tillman who spoke in Arabic with the patient.
Patient states he has no abdominal pain. He denies nausea or vomiting. He had a small bowel movement yesterday and none today. He denies any blood in his stool.
Objective Data
-
Vital Signs
Temp Pulse Resp BP Pulse Ox
97.4 F 93 17 107/75 95
10/14/23 07:42 10/14/23 08:52 10/14/23 07:42 10/14/23 08:52 10/14/23 07:42
Intake & Output
10/13/23 10/14/23 10/15/23
06:59 06:59 06:59
Intake Total 1730 / 1730 2990 / 2990
Output Total 750 / 750 1850 / 1850
Balance 980 / 980 1140 / 1140
Intake:
Oral fluids 880 / 880 2190 / 2190
IV fluids (Total) 750 / 750 700 / 700
IV piggybacks 100 / 100 100 / 100
Output:
Urine, Voided 750 / 750 1850 / 1849
Other:
Number of approximated SMALL 1
amounts of urine
Number of approximated LARGE 1
amounts of urine
How many times incontinent 1
SMALL amount urine
How many times incontinent 1
SATURATED amount urine
Number of immeasurable emeses? 1
Lab Results
10/14/23 06:10
10/14/23 06:10
Physical Exam
-
General: No Acute Distress and AOx3
Abdomen: Soft, Non Distended and Non Tender
Skin: Warm and Dry
--- NOTE | 2023-10-14 10:26 | CM ---
Placed a call to admissions at [facility] and spoke with Maty who stated that patient's family had expressed to her that they do not want him to return there as they feel that they need a facility that can more accommodate his behaviors a little
better. She stated that the family speaks [place]. Placed a call to patient's however there was no answer and no voicemail to leave a message. Will attempt another call if no family comes in to visit as patient has not been able to stay awake
or participate in any conversations.
Plan: Case management will continue to follow and assist with discharge planning. Patient will need placement, will talk to family to determine their thoughts.
--- NOTE | 2023-10-14 10:45 | PTCARENOTE ---
pt screaming out in pain. reporting severe pain to B/L LE but reports the left is worse than the right. attending at bedside, x1PRN ordered and administered.
[2023-10-14] MEDS: NSS (PRESERVATIVE FREE) 0.25 ML IV (10:54)
[2023-10-14] MEDS: ATIVAN 0.5 MG IV (10:55)
[2023-10-14] MEDS: DILAUDID 0.5 MG IV (10:55)
[2023-10-14 11:25] VITALS: BP 109/73
[2023-10-14 11:49] LABS: Glucose - Point of Care 292 mg/dl (70-99)
[2023-10-14 12:30] VITALS: BMI 29.7
--- NOTE | 2023-10-14 13:32 | PTCARENOTE ---
pt resting comfortably. DIL calling for update, information passed on to attending
--- NOTE | 2023-10-14 14:04 | W.PN.HOSP.TC ---
Today's Communication/Plan
-
for C-scope tomorrow
LE pain of unclear etiology
Assessment / Plan
Assessment / Plan
CT head 10/13
Continued evolution of large subacute right MCA territory infarct with hemorrhagic conversion, measuring up to 4.0 x 6.1 x 5.1 cm. This exerts mild mass effect on the underlying right lateral ventricle without significant midline shift or herniation.
The ventricles are otherwise normal in size, configuration, and position for age.� Stable old left occipital lobe infarct. Visualized paranasal sinuses are free of mucosal disease. No depressed calvarial fracture.
CT abd/pelvis
1. � 3.6 cm in length segment of mild circumferential wall thickening in the mid rectum. Diagnostic possibilities are (1) rectal adenocarcinoma, (2) infectious or inflammatory proctitis, or (3) under distention of the rectal lumen.
2. � Bilateral adrenal masses measuring 3.0 cm in size on the left and 1.2 cm in size on the right. Diagnostic possibilities are (1) benign adrenal tumors (adenomas) or (2) less likely malignancy (metastatic disease).
3. � Moderately enlarged prostate gland.
4. � Small hiatal hernia.
5. � Moderate to severe pancreatic parenchymal atrophy (lipomatosis).
6. � Mild diffuse hepatic steatosis.
7. � Left-sided pelvic kidney.
8. � Severe atherosclerotic plaque in the abdominal aorta.
9. � Severe calcific atherosclerotic plaque in the coronary arteries.
10. � Chronic granulomatous disease infection in the chest.

Acute proctitis
Sepsis POA
R/o Rectal/terminal colon malignancy
-Patient complains of rectal pain
-CT abdomen pelvis showing circumferential wall thickening of rectum with possible diagnosis of inflammatory/infectious proctitis versus malignancy
-Some leukocytosis with associated tachycardia.� No reported fever monitor T curve
-Got Zosyn in ER, continue
-CRS evaluated and possible question of rectal/colon cancer , will plan to do C-scope on
Nausea/vomiting -resolved
-No signs of obstruction
-On IV Zosyn for proctitis
-start on FL diet.
Right parietal lobe CVA with hemorrhage
-Some left upper extremity weakness on exam.
-Records from [facility] to be obtained
-CT head 10/13 showing evolving right parietal lobe stroke
-Discussed with neuro and recommended to resume eliquis/plavix post procedure.
Afib/RVR
-Restarted metoprolol back. continue monitor on telemetry.
-Likely driven by sepsis
IDDM
- maintain on home regimen of lantus/ISS
Bilateral thigh pain
- sev and sudden onset, no swelling on exam
- suspecting MSK in nature but monitor for reoccurrence
- got 0.5mg dilaudid and sedated from that. would give 0.25mg dilaudid prn if reocurres
HLD
Obesity
Essential HTN
Chronic leg swelling
DVTPPX- eliquis - on hold
Full code
POA updated 10/14
Anticipated Discharge: 24 - 48 hours
Subjective/Interval History
-
Date of Service: October 14, 2023
patient agitated with sev pain in Right thigh and then in left thigh
with language barrier unable to give clear
Objective Data
-
Labs:
Laboratory Results
10/14/23
06:10
WBC 8.1
Hgb 13.3
Hct 39.6
Plt Count 306
Sodium 135
Potassium 4.1
Chloride 106
Carbon Dioxide 26
BUN 18
Creatinine 0.9
Glucose 123 H
Calcium 8.2 L
Vital Signs:
Vital Signs
Temp Pulse Resp BP Pulse Ox
98.0 F 88 16 109/73 95
10/14/23 11:25 10/14/23 11:25 10/14/23 11:25 10/14/23 11:25 10/14/23 11:25
I&O
10/13/23 10/14/23 10/15/23
06:59 06:59 06:59
Intake Total 1730 / 1730 2990 / 2990
Output Total 750 / 750 1850 / 1850
Balance 980 / 980 1140 / 1140
Review of Systems
-
Unable to obtain full review of systems at this time due to: Language Barrier
Physical Exam
-
General: Appears in Distress and Pain
HEENT: Negative Oxygen
Respiratory: Clear to Auscultation
Cardiac: Regular Rhythm and S1/S2; Negative Murmur
GI: Soft and Nontender
Musculoskeletal: No Edema
Neuro: Awake, Alert and No Motor Deficits
[2023-10-14 15:50] VITALS: BP 132/68
[2023-10-14 16:32] LABS: Glucose - Point of Care 205 mg/dl (70-99)
[2023-10-14] MEDS: FLOMAX 0.400000000000000022 MG PO (17:08)
[2023-10-14] MEDS: NOVOLOG FLEXPEN-LOW RESISTANCE 2 UNITS SC (17:18)
--- NOTE | 2023-10-14 17:34 | PTCARENOTE ---
pt has been sleeping and lethargic most afternoon after pain medication administration. Now starting to wake up, asking for dinner. preservationist line used appropriately. pt denies pain at this time. moving him to private room d/t disruptive behaviors
and yelling out over night last night
[2023-10-14] MEDS: NULYTELY SOLUTION 4 LITERS PO (18:12)
[2023-10-14 19:50] VITALS: BP 100/67
[2023-10-14 21:46] LABS: Glucose - Point of Care 218 mg/dl (70-99)
[2023-10-14 23:07] VITALS: BP 151/83
[2023-10-14] MEDS: ZETIA 10 MG PO (23:27)
[2023-10-14] MEDS: LIDOCAINE 4% PATCH 1 PATCH TOPICAL (23:28)
[2023-10-14] MEDS: CRESTOR 40 MG PO (23:29)
[2023-10-14] MEDS: LANTUS 0.100000000000000006 UNITS SC (23:35)
[2023-10-15] VITALS (10 sets, daily range): BP systolic 16–152; BP diastolic 49–109; BMI 29.6
[2023-10-15] MEDS: ZOSYN 50 IV ×4 (04:47→22:17)
--- NOTE | 2023-10-15 05:29 | PTCARENOTE ---
Pt agitated through out shift.Language line used several times to explain the medication is causing cramping/diarrhea.Pt is forgetful,yellig loudly and can be verbally demanding.Pt was transferred to private room 335 and med sitter placed for pt's
safety.Pt is instructed through the language line again about abdomen flatus /loose BM's,No food and colonoscopy.Pt forgets and then refuses pt care.@0540,Pt refused AM labs ,accu check and stated,'No food ,NO'.Pt will yell pee and urinate in
urinal.Pt did drink 1440ml of bowel prep and then refused when abdomen was cramping started.Language line instructed this RN that pt told him his poop smells and he does not like it.
[2023-10-15] MEDS: LOPRESSOR 50 MG PO (08:37)
[2023-10-15] MEDS: DEPAKOTE SPRINKLE 250 MG PO ×2 (08:37→22:25)
[2023-10-15] MEDS: NEURONTIN 600 MG PO ×3 (08:37→22:24)
[2023-10-15] MEDS: COLCHICINE 0.299999999999999989 MG PO (08:38)
[2023-10-15 08:40] LABS: Hematocrit 42.3 % (39.0-52.0); Hemoglobin 14.3 g/dL (13.0-18.0); Mean Corp Hgb Conc. 33.8 g/dL (33.0-37.0); Mean Corpuscular Hgb 30.3 pg (27.0-31.0); Mean Corpuscular Volume 89.6 fL (80.0-94.0); Mean Platelet Volume 9.9 fL (7.4-10.4); Platelet Count 339 10^3/uL (130-400); Red Blood Cell Count 4.72 10^6/uL (4.70-6.10); Red Cell Dist. Width 12.5 % (11.5-14.5); White Blood Cell Count 8.8 10^3/uL (4.8-10.8)
[2023-10-15] MEDS: LEXAPRO 10 MG PO (08:40)
[2023-10-15 09:05] LABS: Depakane 32.6 ug/ml (50.0-120.0)
[2023-10-15 09:18] LABS: Blood Urea Nitrogen 9 mg/dl (9-20); Calcium 8.7 mg/dl (8.4-10.2); Carbon Dioxide 31 mmol/L (22-30); Chloride 103 mmol/L (98-107); Estimated Creatinine Clearance 78 ml/min; Glucose 92 mg/dl (70-99); Potassium 4.1 mmol/L (3.5-5.1); Sodium 138 mmol/L (135-145); eGFR > 60.00
--- NOTE | 2023-10-15 09:38 | W.PN.NEURO.1 ---
Today's Communication / Plan
-
-Acceptable risk from neurologic standpoint for holding Apixaban and Clopidogrel for brief period given the importance of evaluation of abnormal findings of the colon with potential for malignancy and that such a diagnosis cannot be delayed. Would
resume the antithrombotics as soon as possible from procedural perspective
-Goal normotension and normoglycemia
-No other medication changes recommended
-Minimize new sedating medications
-Presence of hemorrhagic conversion in an ischemic stroke weeks ago would not prohibit resuming Eliquis and Clopidogrel, is common after large cortical strokes and essential he be resumed on antithrombotics for secondary prevention of stroke and
ischemic heart disease
Will follow peripherally call with questions and concerns
Neuro Assessment/Plan
Assessment
73 year old man with history of atrial fibrillation, atrial fibrillation, IDDM, hypertension, ischemic cardiomyopathy, recent right MCA stroke in early September presetned to abdominal pain, nausea/vomiting. CT abdomen pelvis showing thickening of
colon concerning for inflammation versus malignancy
Patient was in [facility] in [place] with new diagnosis of CVA on September 28 and was discharged to [facility] on 08 of October
Reviewed CT head with right MCA stroke with type 2 hemorragic infarction
Patient with right MCA syndrome on exam, dysarthria, left arm more than leg weakness, mild [place]-neglect is most likely present
Subjective/Objective
Subjective Data
Date of Service: October 15, 2023
No acute events, planned for colonoscopy today, denies headache, complains of left leg pain
Objective Data
Vital Signs
Temp Pulse Resp BP Pulse Ox
97.7 F 96 17 140/90 97
10/15/23 07:00 10/15/23 07:00 10/15/23 07:00 10/15/23 07:00 10/15/23 07:00
Lab Results
10/15/23 08:20
10/15/23 08:20
Sodium 138 mmol/L (135-145) 10/15/23 08:20
Potassium 4.1 mmol/L (3.5-5.1) 10/15/23 08:20
BUN 9 mg/dl (9-20) 10/15/23 08:20
Glucose 92 mg/dl (70-99) 10/15/23 08:20
Calcium 8.7 mg/dl (8.4-10.2) 10/15/23 08:20
LDL Cholesterol, Calc 23 mg/dl 10/14/23 06:10
Patient Allergies
No Known Allergies Allergy (Verified 10/08/23 23:46)
Review of Systems
-
History Source: Patient
All other systems: Reviewed and negative
Constitutional: No Symptoms
EENT: No Symptoms Reported
Respiratory: No Symptoms
Cardiac: No Symptoms
Abdomen/GI: No Symptoms
Genitourinary: No Symptoms
Musculoskeletal: No Symptoms
Skin: No Symptoms
Neuro: No Symptoms
Endocrine: No Symptoms
Hematologic / Lymphatic: No Symptoms
Allergy / Immunology: No Symptoms
Physical Exam
-
General: No Apparent Distress and Obese
Eyes: No Ptosis
HEENT: Normocephalic
Neck: No Bruits Bilaterally
Respiratory: Clear to Auscultation
Cardiac: Regular Rhythm
GI: Normal Bowel Sounds
Skin: Unremarkable
Extremities: No Clubbing
Psych: Unremarkable
Extended Neurological Exam
Mood & Affect: Mood Unremarkable and Affect Unremarkable
Attention Span & Concentration: Awake, Alert and Interactive
Memory: Unremarkable
Tremor: Hand Tremor Absent
Involuntary Movement: None
Speech: Quality Unremarkable, Quantity Unremarkable and Dysarthric; Negative Expressive Aphasia
Cranial Nerve II: Left Eye: Pupillary Reactivity Unremarkable, Pupillary Size Unremarkable and Visual Espinal Grossly Intact
Cranial Nerve II: Right Eye: Pupillary Reactivity Unremarkable, Pupillary Size Unremarkable and Visual Espinal Grossly Intact
Cranial Nerves III, IV, : Extraocular Movement: Extraocular Movement Full in all Directions
Cranial Nerve VII: Facial Symmetry: Other (Left facial weakness)
Muscle Strength, Overall: Other (Left arm 1/5, left leg 3/5)
Data Reviewed
-
CT Head: Report Reviewed and Image Reviewed
--- NOTE | 2023-10-15 09:49 | W.PN.UPDATE ---
Update Note
Progress Note Update
I spoke with Orly Mckeon. She is aware the patient is going for a colonoscopy today. The patient was not able to tolerate the prep yesterday due to lethargy. He will receive two enemas today. Discussed with hospitalist/neurology/nursing.
[2023-10-15] MEDS: TYLENOL 650 MG PO (12:08)
[2023-10-15 12:13] LABS: Glucose - Point of Care 107 mg/dl (70-99)
--- NOTE | 2023-10-15 14:03 | W.PN.HOSP.TC ---
Today's Communication/Plan
-
for flex sig today
will switch to PO abx post procedure
will restart eliquis/plavix based on flex sig finding
Assessment / Plan
Assessment / Plan
CT head 10/13
Continued evolution of large subacute right MCA territory infarct with hemorrhagic conversion, measuring up to 4.0 x 6.1 x 5.1 cm. This exerts mild mass effect on the underlying right lateral ventricle without significant midline shift or herniation.
The ventricles are otherwise normal in size, configuration, and position for age.� Stable old left occipital lobe infarct. Visualized paranasal sinuses are free of mucosal disease. No depressed calvarial fracture.
CT abd/pelvis
1. � 3.6 cm in length segment of mild circumferential wall thickening in the mid rectum. Diagnostic possibilities are (1) rectal adenocarcinoma, (2) infectious or inflammatory proctitis, or (3) under distention of the rectal lumen.
2. � Bilateral adrenal masses measuring 3.0 cm in size on the left and 1.2 cm in size on the right. Diagnostic possibilities are (1) benign adrenal tumors (adenomas) or (2) less likely malignancy (metastatic disease).
3. � Moderately enlarged prostate gland.
4. � Small hiatal hernia.
5. � Moderate to severe pancreatic parenchymal atrophy (lipomatosis).
6. � Mild diffuse hepatic steatosis.
7. � Left-sided pelvic kidney.
8. � Severe atherosclerotic plaque in the abdominal aorta.
9. � Severe calcific atherosclerotic plaque in the coronary arteries.
10. � Chronic granulomatous disease infection in the chest.

Acute proctitis
Sepsis POA - Improving
R/o Rectal/terminal colon malignancy
-Patient complains of rectal pain
-CT abdomen pelvis showing circumferential wall thickening of rectum with possible diagnosis of inflammatory/infectious proctitis versus malignancy
-Some leukocytosis with associated tachycardia.� No reported fever monitor T curve
-Got Zosyn in ER, continue
-CRS evaluated and possible question of rectal/colon cancer , plan to get flex sigmoidoscopy today.
Nausea/vomiting -resolved
-No signs of obstruction
-On IV Zosyn for proctitis
-start on [place] diet.
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
-left upper extremity weakness on exam.
-Records from [facility] to be obtained and reviewed.
-CT head 10/13 showing evolving right parietal lobe stroke
-Discussed with neuro and recommended to resume eliquis/plavix post procedure.
Afib/RVR
-Restarted metoprolol back. continue monitor on telemetry.
-Likely driven by sepsis
IDDM
- maintain on home regimen of lantus/ISS
Bilateral thigh pain
- sev and sudden onset, no swelling on exam
- suspecting MSK in nature but monitor for reoccurrence
- got 0.5mg dilaudid and sedated from that. would give 0.25mg dilaudid prn if reocurres
HLD
Obesity
Essential HTN
Chronic leg swelling
DVTPPX- eliquis - on hold
Full code
POA updated 10/14
Discussed with CRS/Neurology
Anticipated Discharge: 24 - 48 hours
Subjective/Interval History
-
Date of Service: October 15, 2023
Patient much more comfortable, stated of having rectal pain/spasm yesterday
RN at bedside mohawk speaking - helped with communication
Objective Data
-
Labs:
Laboratory Results
10/15/23
08:20
WBC 8.8
Hgb 14.3
Hct 42.3
Plt Count 339
Sodium 138
Potassium 4.1
Chloride 103
Carbon Dioxide 31 H
BUN 9
Creatinine 0.9
Glucose 92
Calcium 8.7
Vital Signs:
Vital Signs
Temp Pulse Resp BP Pulse Ox
98.1 F 80 17 120/62 97
10/15/23 11:00 10/15/23 11:00 10/15/23 11:00 10/15/23 11:00 10/15/23 11:00
I&O
10/14/23 10/15/23 10/16/23
06:59 06:59 06:59
Intake Total 2990 / 2990 2410 / 2410
Output Total 1850 / 1850 1040 / 1040
Balance 1140 / 1140 1370 / 1370
Review of Systems
-
Unable to obtain full review of systems at this time due to: Language Barrier
Respiratory: Reports No Symptoms
Cardiac: Reports No Symptoms
Abdomen/GI: Reports No Symptoms
Physical Exam
-
General: Negative Appears in Distress
HEENT: Negative Oxygen
Neuro: Awake, Alert, Oriented and Other (Left hand weakness )
--- NOTE | 2023-10-15 14:30 | CM ---
met with patient, his merna who just returned from [place] several days ago,his niece jorje [phone].patient recently had an mca infarct [facility] zosyn.he also complaining of abdominal pain
and is having a colonoscopy.he is icelandic speaking and has cognitive deficits.family is not interested in having patient return to [facility] and wants a facility closer to patient's home in [place].prior to having his stroke he was ambulating
with a cane and still driving.family cannot remember his pcp and patient gets his meds from different pharmacies.
Plan is discharge to a skilled rehab facility in [facility].referrals have been sent.
--- NOTE | 2023-10-15 14:42 | SUR.PHASEI ---
Patient hypotensive in PACU post colonoscopy, Dr Erica Rutherford. Miriam Durán TEAM GUIDE.
--- NOTE | 2023-10-15 15:04 | W.PN.UPDATE ---
Update Note
Progress Note Update
Completed flexible sigmoidoscopy (not colonoscopy as prep suboptimal). With irrigation, was able to clear rectosigmoid. 1 2mm polyp noted (not removed). No other findings. Will put on regular diet. Daughter updated via phone conversation.
--- NOTE | 2023-10-15 15:16 | SUR.PHASEI ---
Patient transferred to hospital bed with 3 assist, family in room. Miriam Durán RN BSN.
--- NOTE | 2023-10-15 15:16 | PTCARENOTE ---
pt returned from OR s/P colonoscopy. offers no complaints, awake and alert. family at bedside
[2023-10-15 15:36] LABS: Glucose - Point of Care 98 mg/dl (70-99)
[2023-10-15] MEDS: FLOMAX 0.400000000000000022 MG PO (16:56)
[2023-10-15 21:36] LABS: Glucose - Point of Care 251 mg/dl (70-99)
[2023-10-15] MEDS: LIDOCAINE 4% PATCH 1 PATCH TOPICAL (22:13)
[2023-10-15] MEDS: LANTUS 0.100000000000000006 UNITS SC (22:24)
[2023-10-15] MEDS: ZETIA 10 MG PO (22:25)
[2023-10-15] MEDS: CRESTOR 40 MG PO (22:25)
[2023-10-16] VITALS (7 sets, daily range): BP systolic 125–156; BP diastolic 80–96; PULSE 98; O2SAT 98; BMI 29.9
[2023-10-16] MEDS: LOPRESSOR 25 MG PO ×2 (02:06→14:00)
[2023-10-16] MEDS: ZOSYN 50 IV ×2 (04:50→11:07)
[2023-10-16] MEDS: FLUSH (NSS) 2 FLUSH IV (04:51)
[2023-10-16 06:50] LABS: Hematocrit 38.3 % (39.0-52.0); Hemoglobin 12.9 g/dL (13.0-18.0); Mean Corp Hgb Conc. 33.7 g/dL (33.0-37.0); Mean Corpuscular Hgb 30.8 pg (27.0-31.0); Mean Corpuscular Volume 91.4 fL (80.0-94.0); Mean Platelet Volume 9.8 fL (7.4-10.4); Platelet Count 298 10^3/uL (130-400); Red Blood Cell Count 4.19 10^6/uL (4.70-6.10); Red Cell Dist. Width 12.6 % (11.5-14.5)
[2023-10-16 07:29] LABS: Blood Urea Nitrogen 9 mg/dl (9-20); Calcium 8.2 mg/dl (8.4-10.2); Carbon Dioxide 29 mmol/L (22-30); Chloride 105 mmol/L (98-107); Estimated Creatinine Clearance 78 ml/min; Glucose 173 mg/dl (70-99); Sodium 136 mmol/L (135-145); eGFR > 60.00
[2023-10-16 07:51] LABS: Glucose - Point of Care 185 mg/dl (70-99)
[2023-10-16] MEDS: NOVOLOG FLEXPEN-LOW RESISTANCE 1 UNITS SC (08:35)
[2023-10-16] MEDS: COLCHICINE 0.299999999999999989 MG PO (08:35)
[2023-10-16] MEDS: NEURONTIN 600 MG PO ×3 (08:36→21:06)
[2023-10-16] MEDS: DEPAKOTE SPRINKLE 250 MG PO ×2 (08:37→21:06)
[2023-10-16] MEDS: LEXAPRO 10 MG PO (08:37)
--- NOTE | 2023-10-16 10:24 | W.PN.CRS1 ---
Today's Communication / Plan
-
s/o
Assessment/Plan
-
Assessment: 73-year-old male with history of a recent right MCA infarct on Xarelto and Plavix, with a finding of mild circumferential wall thickening in the mid rectum found on CT
Plan:
1.� No proctitis or mass found on flexible sigmoidoscopy.
2. Will need a colonoscopy in a year.
3. No colorectal surgery required at this time. Will s/o. Please contact if further issues arise.
Subjective Data
Subjective Data
Date of Service: October 16, 2023
Patient spoken to in Latvian by Dr. Tillman.
Patient states he is hungry. He continues to repeat that he is hungry and is upset about not having food. He has no other complaints.
Objective Data
-
Vital Signs
Temp Pulse Resp BP Pulse Ox
98.3 F 101 18 150/96 97
10/16/23 07:00 10/16/23 07:00 10/16/23 07:00 10/16/23 07:00 10/16/23 07:00
Intake & Output
10/15/23 10/16/23 10/17/23
06:59 06:59 06:59
Intake Total 2410 / 2410 340 / 340
Output Total 1040 / 1040 605 / 605
Balance 1370 / 1370 -265 / -265
Intake:
Oral fluids 2310 / 2310 240 / 240
IV fluids (Total) 0 / 0
IV piggybacks 100 / 100 100 / 100
Output:
Urine, Voided 1040 / 1040 605 / 605
Other:
How many times incontinent 1
SMALL amount urine
How many times incontinent 1
SATURATED amount urine
Number of unmeasured liquid
stools
Rectum 2
Lab Results
10/16/23 06:37
10/16/23 06:37
Physical Exam
-
General: No Acute Distress
Abdomen: Soft, Non Distended and Non Tender
Skin: Warm and Dry
[2023-10-16 11:54] LABS: Glucose - Point of Care 245 mg/dl (70-99)
[2023-10-16] MEDS: NOVOLOG FLEXPEN-LOW RESISTANCE 2 UNITS SC (12:19)
[2023-10-16] MEDS: LOPRESSOR 5 MG IV (13:21)
--- NOTE | 2023-10-16 14:25 | CM ---
pt is ready for discharge today since his scope was negative.spoke with [facility] in adms at [facility] in [place] [phone] and answered their questions.they did offer patient a bed. i called [facility] and spoke
with caro.given reference #[id number] and faxed clinical information to them at [phone].i have spoken with niece jorje and she gave information to the .both are in agreement with discharging to [facility] when auth is received.if patient does
not go to facility today. a honey will there on thursday and can be reached at [phone].
Plan is discharge to [facility] rehab when we receive auth [facility].
--- NOTE | 2023-10-16 14:32 | PTCARENOTE ---
PT's HR elevated to sustained 130's-140's. aware and ordered IV and PO metoprolol, given by this RN. Pt asymptomatic. EKG also obtained.
--- NOTE | 2023-10-16 14:43 | W.PN.HOSP.TC ---
Today's Communication/Plan
-
stop zosyn
restart metoprolol
discharge planning for rehab
Assessment / Plan
Assessment / Plan
CT head 10/13
Continued evolution of large subacute right MCA territory infarct with hemorrhagic conversion, measuring up to 4.0 x 6.1 x 5.1 cm. This exerts mild mass effect on the underlying right lateral ventricle without significant midline shift or herniation.
The ventricles are otherwise normal in size, configuration, and position for age.� Stable old left occipital lobe infarct. Visualized paranasal sinuses are free of mucosal disease. No depressed calvarial fracture.
CT abd/pelvis
1. � 3.6 cm in length segment of mild circumferential wall thickening in the mid rectum. Diagnostic possibilities are (1) rectal adenocarcinoma, (2) infectious or inflammatory proctitis, or (3) under distention of the rectal lumen.
2. � Bilateral adrenal masses measuring 3.0 cm in size on the left and 1.2 cm in size on the right. Diagnostic possibilities are (1) benign adrenal tumors (adenomas) or (2) less likely malignancy (metastatic disease).
3. � Moderately enlarged prostate gland.
4. � Small hiatal hernia.
5. � Moderate to severe pancreatic parenchymal atrophy (lipomatosis).
6. � Mild diffuse hepatic steatosis.
7. � Left-sided pelvic kidney.
8. � Severe atherosclerotic plaque in the abdominal aorta.
9. � Severe calcific atherosclerotic plaque in the coronary arteries.
10. � Chronic granulomatous disease infection in the chest.

Acute proctitis
Sepsis POA - Resolved
R/o Rectal/terminal colon malignancy
-Patient complains of rectal pain
-CT abdomen pelvis showing circumferential wall thickening of rectum with possible diagnosis of inflammatory/infectious proctitis versus malignancy
-Got Zosyn in ER, discontinue further abx and monitor.
-Flex sigmoidoscopy normal.
Nausea/vomiting -resolved
-No signs of obstruction
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
-left upper extremity weakness on exam.
-Records from [facility] to be obtained and reviewed.
-CT head 10/13 showing evolving right parietal lobe stroke
-Discussed with neuro and recommended to resume eliquis/plavix post procedure.
Afib/RVR
-episodes of tachycardia broke with IV metroprolol today
-resumed back on oral metoprolol 50mg bid
IDDM
- maintain on home regimen of lantus/ISS
Bilateral thigh pain
- sev and sudden onset, no swelling on exam
- suspecting MSK in nature but monitor for reoccurrence
- got 0.5mg dilaudid and sedated from that. would give 0.25mg dilaudid prn if reocurres
HLD
Obesity
Essential HTN
Chronic leg swelling
DVTPPX- eliquis - on hold
Full code
Discharge planning for snf rehab
Anticipated Discharge: Within 24 hours
Subjective/Interval History
-
Date of Service: October 16, 2023
no complains of rectal pain overnight
HR uncontrolled requiring IV metoprolol
Objective Data
-
Labs:
Laboratory Results
10/16/23
06:37
WBC 8.0
Hgb 12.9 L
Hct 38.3 L
Plt Count 298
Sodium 136
Potassium 4.0
Chloride 105
Carbon Dioxide 29
BUN 9
Creatinine 0.9
Glucose 173 H
Calcium 8.2 L
Vital Signs:
Vital Signs
Temp Pulse Resp BP Pulse Ox
98.0 F 114 18 159/88 96
10/16/23 11:00 02/23/24 14:00 10/16/23 11:00 10/16/23 14:00 10/16/23 11:00
I&O
10/15/23 10/16/23 10/17/23
06:59 06:59 06:59
Intake Total 2410 / 2410 340 / 340
Output Total 1040 / 1040 605 / 605
Balance 1370 / 1370 -265 / -265
Review of Systems
-
Unable to obtain full review of systems at this time due to: Language Barrier
Respiratory: Reports No Symptoms
Cardiac: Reports No Symptoms
Abdomen/GI: Reports No Symptoms
Physical Exam
-
General: Negative Appears in Distress
HEENT: Negative Oxygen
Respiratory: Clear to Auscultation
Cardiac: Regular Rhythm and S1/S2; Negative Murmur
Neuro: Awake, Alert, Oriented and Other (Left hand weakness )
[2023-10-16 16:41] LABS: Glucose - Point of Care 297 mg/dl (70-99)
[2023-10-16] MEDS: FLOMAX 0.400000000000000022 MG PO (16:53)
[2023-10-16] MEDS: NOVOLOG FLEXPEN-LOW RESISTANCE 3 UNITS SC (16:54)
[2023-10-16] MEDS: LIDOCAINE 4% PATCH 1 PATCH TOPICAL (21:06)
[2023-10-16] MEDS: ZETIA 10 MG PO (21:06)
[2023-10-16] MEDS: CRESTOR 40 MG PO (21:07)
[2023-10-16] MEDS: LOPRESSOR 50 MG PO (21:12)
[2023-10-16 21:48] LABS: Glucose - Point of Care 350 mg/dl (70-99)
[2023-10-16] MEDS: MYLICON 80 MG PO (22:03)
[2023-10-16] MEDS: LANTUS 0.100000000000000006 UNITS SC (22:03)
[2023-10-16] MEDS: NOVOLOG FLEXPEN 5 UNITS SC (22:04)
[2023-10-17 03:00] VITALS: BP 141/86
[2023-10-17] MEDS: MYLICON 80 MG PO (04:39)
[2023-10-17 06:05] LABS: Hemoglobin 13.8 g/dL (13.0-18.0); Mean Corp Hgb Conc. 33.7 g/dL (33.0-37.0); Mean Corpuscular Hgb 30.3 pg (27.0-31.0); Mean Corpuscular Volume 90.1 fL (80.0-94.0); Mean Platelet Volume 10.1 fL (7.4-10.4); Platelet Count 314 10^3/uL (130-400); Red Blood Cell Count 4.55 10^6/uL (4.70-6.10); Red Cell Dist. Width 12.6 % (11.5-14.5); White Blood Cell Count 9.2 10^3/uL (4.8-10.8)
[2023-10-17 06:35] LABS: Blood Urea Nitrogen 7 mg/dl (9-20); Calcium 8.5 mg/dl (8.4-10.2); Carbon Dioxide 28 mmol/L (22-30); Chloride 102 mmol/L (98-107); Estimated Creatinine Clearance 88 ml/min; Glucose 202 mg/dl (70-99); Potassium 4.1 mmol/L (3.5-5.1); Sodium 134 mmol/L (135-145); eGFR > 60.00
[2023-10-17 07:30] VITALS: BP 160/87
[2023-10-17 07:56] LABS: Glucose - Point of Care 201 mg/dl (70-99)
[2023-10-17] MEDS: NOVOLOG FLEXPEN-LOW RESISTANCE 2 UNITS SC ×3 (09:51→17:48)
[2023-10-17] MEDS: NEURONTIN 600 MG PO (09:52)
[2023-10-17] MEDS: DEPAKOTE SPRINKLE 250 MG PO ×2 (09:52→20:25)
[2023-10-17] MEDS: LOPRESSOR 50 MG PO ×2 (09:52→20:25)
[2023-10-17] MEDS: COLCHICINE 0.299999999999999989 MG PO (09:52)
[2023-10-17] MEDS: LEXAPRO 10 MG PO (09:53)
[2023-10-17] MEDS: TYLENOL 650 MG PO ×2 (09:57→20:32)
[2023-10-17 11:19] VITALS: BP 109/55
--- NOTE | 2023-10-17 12:15 | CM ---
Addendum entered by Gerry Ramsey 10/17/23 14:18:
CM called [facility] again and it happened spoke to the same metals sales representative name Hood and she stated that an auth still pending.
Original Note:
CM following re: discharge planning.
According to MD pt is medically stable to be discharged today and pt will need to go to a SNF.
CM note from yesterday noted. An auth for SNF level of care at [facility] and rehab in [place] initiated yesterday with [facility].
CM called [facility] [phone], spoke to metals sales representative Hood and she stated that an auth still pending and under review of their clinical team. CM will call later this afternoon to [facility] check on the status of the auth.
CM spoke to [facility] [place] admissions department metals sales representative Antionette and she confirmed that pt will be accepted when an auth available
[facility] in [place] address: [address] [place] [address], [facility].
[facility] Nursing report: [phone]
Discharge instructions fax: [phone]
D/C plan: [facility] SN[facility] when an auth available.
CM will follow to assist pt with discharge to [facility]
[2023-10-17 12:18] LABS: Glucose - Point of Care 244 mg/dl (70-99)
--- NOTE | 2023-10-17 13:27 | W.PN.HOSP.TC ---
Today's Communication/Plan
-
d/c planing for rehab
Assessment / Plan
Assessment / Plan
CT head 10/13
Continued evolution of large subacute right MCA territory infarct with hemorrhagic conversion, measuring up to 4.0 x 6.1 x 5.1 cm. This exerts mild mass effect on the underlying right lateral ventricle without significant midline shift or herniation.
The ventricles are otherwise normal in size, configuration, and position for age.� Stable old left occipital lobe infarct. Visualized paranasal sinuses are free of mucosal disease. No depressed calvarial fracture.
CT abd/pelvis
1. � 3.6 cm in length segment of mild circumferential wall thickening in the mid rectum. Diagnostic possibilities are (1) rectal adenocarcinoma, (2) infectious or inflammatory proctitis, or (3) under distention of the rectal lumen.
2. � Bilateral adrenal masses measuring 3.0 cm in size on the left and 1.2 cm in size on the right. Diagnostic possibilities are (1) benign adrenal tumors (adenomas) or (2) less likely malignancy (metastatic disease).
3. � Moderately enlarged prostate gland.
4. � Small hiatal hernia.
5. � Moderate to severe pancreatic parenchymal atrophy (lipomatosis).
6. � Mild diffuse hepatic steatosis.
7. � Left-sided pelvic kidney.
8. � Severe atherosclerotic plaque in the abdominal aorta.
9. � Severe calcific atherosclerotic plaque in the coronary arteries.
10. � Chronic granulomatous disease infection in the chest.

Acute proctitis
Sepsis POA - Resolved
R/o Rectal/terminal colon malignancy
-Patient complains of rectal pain
-CT abdomen pelvis showing circumferential wall thickening of rectum with possible diagnosis of inflammatory/infectious proctitis versus malignancy
-Got Zosyn in ER, discontinue further abx and monitor.
-Flex sigmoidoscopy normal.
Nausea/vomiting -resolved
-No signs of obstruction
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
-left upper extremity weakness on exam.
-Records from [facility] to be obtained and reviewed.
-CT head 10/13 showing evolving right parietal lobe stroke
-Discussed with neuro and recommended to resume eliquis/plavix post procedure.
Afib/RVR
-episodes of tachycardia broke with IV metroprolol today
-resumed back on oral metoprolol 50mg bid
IDDM
- maintain on home regimen of lantus/ISS
Bilateral thigh pain
- sev and sudden onset, no swelling on exam
- suspecting MSK in nature but monitor for reoccurrence
- got 0.5mg dilaudid and sedated from that. would give 0.25mg dilaudid prn if reocurres
HLD
Obesity
Essential HTN
Chronic leg swelling
DVTPPX- eliquis - on hold
Full code
Discharge planning for snf rehab
Anticipated Discharge: Today
Subjective/Interval History
-
Date of Service: October 17, 2023
Complaining of some pain in back and leg
No other acute issues overnight
Objective Data
-
Labs:
Laboratory Results
10/17/23
05:29
WBC 9.2
Hgb 13.8
Hct 41.0
Plt Count 314
Sodium 134 L
Potassium 4.1
Chloride 102
Carbon Dioxide 28
BUN 7 L
Creatinine 0.8
Glucose 202 H
Calcium 8.5
Vital Signs:
Vital Signs
Temp Pulse Resp BP Pulse Ox
98.6 F 79 18 109/55 96
10/17/23 11:19 10/17/23 11:19 10/17/23 11:19 10/17/23 11:19 10/17/23 11:19
I&O
10/16/23 10/17/23 10/18/23
06:59 06:59 06:59
Intake Total 340 / 340 1260 / 1260
Output Total 605 / 605 975 / 975
Balance -265 / -265 285 / 285
Review of Systems
-
Unable to obtain full review of systems at this time due to: Language Barrier (Ukrainian speaking RN help with interpretation)
Respiratory: Reports No Symptoms
Cardiac: Reports No Symptoms
Abdomen/GI: Reports No Symptoms
Physical Exam
-
General: Comfortable; Negative Appears in Distress
HEENT: Negative Oxygen
GI: Soft, Nontender and Nondistended
Neuro: Awake, Alert, Oriented and Other (Left upper and lower extremity weakness)
--- NOTE | 2023-10-17 14:20 | PTCARENOTE ---
Pt was found in room and unable to be aroused for medication administration. This nurse attempted to sternal rub with minimal response. vital signs WNL. Pt on monitor. Doctor Leung alerted of situation via TT. CT head ordered. Will continue to
monitor.
[2023-10-17 14:24] LABS: Glucose - Point of Care 207 mg/dl (70-99)
--- NOTE | 2023-10-17 14:44 | W.PN.UPDATE ---
Addendum entered and electronically signed by Jack Leung MD 10/17/23 15:54:
CT head images reviewed personally - no major changes - await official read
palvix/eliquis resumed
ABG ruled out co2 retention
Addendum entered and electronically signed by Jack Leung MD 10/17/23 14:47:
On gabapentin 600mg tid - hold further dose
continue divalproex for now - check level
Original Note:
Update Note
Progress Note Update
Patient somnolent/less responsive. opening eys on sternal rub
Patient was able to commucnicate in morning.
CT head w/o contrast urgent ordered
Check abg to r/o any developing co2 narcosis
Neuro notified.
[2023-10-17 15:20] LABS: B.E. 4.1 mmol/L; HCO3 28.5 mmol/L (21-28); PCO2 41 mmHg (35-48); PO2 77 mmHg (83-108); pH 7.45 (7.35-7.45)
[2023-10-17 16:00] VITALS: BP 133/92
--- NOTE | 2023-10-17 17:11 | W.PN.NEURO.1 ---
Today's Communication / Plan
-
hold one dose of gabapentin
VPA level
EEG Thursday
Neuro Assessment/Plan
Assessment
73 year old man with history of atrial fibrillation, atrial fibrillation, IDDM, hypertension, ischemic cardiomyopathy, recent right MCA stroke in early September who presented with abdominal pain, nausea/vomiting. CT abdomen pelvis showing
thickening of colon concerning for inflammation versus malignancy
Patient was in [facility] in [place] with new diagnosis of CVA on September 28 and was discharged to [facility] on 08 of October
Patient with right MCA syndrome on exam, dysarthria, left sided weakness
Today had a 30-45 min episode of unresponsiveness of unclear etiology; no clear convulsive seizure activity; vitals stable, Accucheck normal. Returned to baseline in CT. HCT stable. Differential includes medication side effect vs nonconvulsive
seizure.
HCT read:
'As before, there is diminished attenuation related to edema from right MCA distribution infarct. Centrally situated within the infarct field is a small hyperdense focus consistent with hemorrhage measuring approximately 5 mm x 5 mm x 2 mm, yielding
a volume of less than 1 mL. This has diminished in size.
Mass effect consists of effacement of the overlying cerebral sulci and slight impression along the lateral margin of the right ventricular body, similar to prior examination. No midline shift.
No other significant interval change.'
Plan
-ok with holding one dose of gabapentin
-check VPA level and continue current dosing
-routine EEG
-reviewed repeat stat HCT result, images
-continue Eliquis, Plavix
-neurochecks, seizure precautions
-avoiding sedating meds
-call with any further events, concern for any seizure activity
Subjective/Objective
Subjective Data
Date of Service: October 17, 2023
called to re-evaluate the patient after he became somnolent/unresponsive for 30-45 mins earlier today for unclear reasons; now back to baseline
Objective Data
Vital Signs
Temp Pulse Resp BP Pulse Ox
98.6 F 79 18 109/55 96
10/17/23 11:19 10/17/23 11:19 10/17/23 11:19 10/17/23 11:19 10/17/23 11:19
Lab Results
10/17/23 05:29
10/17/23 05:29
Sodium 134 mmol/L (135-145) L 10/17/23 05:29
Potassium 4.1 mmol/L (3.5-5.1) 10/17/23 05:
BUN 7 mg/dl (9-20) L 10/17/23 05:
Glucose 202 mg/dl (70-99) H 10/17/23 05:29
Calcium 8.5 mg/dl (8.4-10.2) 10/17/23 05:29
LDL Cholesterol, Calc 23 mg/dl 10/14/23 06:10
Patient Allergies
No Known Allergies Allergy (Verified 10/08/23 23:46)
Physical Exam
-
Mood & Affect: translation provided by nursing staff--patient is agitated/complaining about hospital food but was more calm when I examined him and followed all commands
Attention Span & Concentration: Awake, Alert and Interactive
Tremor: Hand Tremor Absent
Involuntary Movement: None
Speech: no clear aphasia in conversation per translation
Cranial Nerve II: Left Eye: Pupillary Reactivity Unremarkable, Pupillary Size Unremarkable and Visual Espinal Grossly Intact
Cranial Nerve II: Right Eye: Pupillary Reactivity Unremarkable, Pupillary Size Unremarkable and Visual Espinal Grossly Intact
Cranial Nerves III, IV, : Extraocular Movement: Extraocular Movement Full in all Directions
Cranial Nerve VII: Facial Symmetry: Other (Left facial weakness)
Muscle Strength, Overall: Other (Left arm at least 3/5, left leg 3/5); right side full
[2023-10-17 17:18] LABS: Depakane 39.4 ug/ml (50.0-120.0)
[2023-10-17] MEDS: FLOMAX 0.400000000000000022 MG PO (17:48)
[2023-10-17] MEDS: NOVOLOG FLEXPEN 2 UNITS SC (17:48)
[2023-10-17 19:05] VITALS: BP 130/60
[2023-10-17] MEDS: CRESTOR 40 MG PO (20:24)
[2023-10-17] MEDS: ZETIA 10 MG PO (20:24)
[2023-10-17] MEDS: LIDOCAINE 4% PATCH 1 PATCH TOPICAL (20:24)
[2023-10-17] MEDS: ELIQUIS 5 MG PO (20:25)
[2023-10-17 21:35] LABS: Glucose - Point of Care 183 mg/dl (70-99)
[2023-10-17] MEDS: LANTUS 0.149999999999999994 UNITS SC (22:51)
[2023-10-17 23:15] VITALS: BP 141/77
[2023-10-18 03:37] VITALS: BP 136/91
[2023-10-18 07:00] VITALS: BP 141/98
[2023-10-18 07:57] LABS: Glucose - Point of Care 150 mg/dl (70-99)
[2023-10-18] MEDS: NOVOLOG FLEXPEN 2 UNITS SC ×3 (08:35→17:07)
[2023-10-18] MEDS: NOVOLOG FLEXPEN-LOW RESISTANCE 1 UNITS SC (08:36)
[2023-10-18] MEDS: LEXAPRO 10 MG PO (08:36)
[2023-10-18] MEDS: LOPRESSOR 50 MG PO ×2 (08:36→21:22)
[2023-10-18] MEDS: ELIQUIS 5 MG PO ×2 (08:36→21:04)
[2023-10-18] MEDS: COLCHICINE 0.299999999999999989 MG PO (08:36)
[2023-10-18] MEDS: PLAVIX 75 MG PO (08:36)
[2023-10-18] MEDS: DEPAKOTE SPRINKLE 250 MG PO ×2 (08:36→21:04)
[2023-10-18 11:02] VITALS: BP 149/88
[2023-10-18 11:33] LABS: Glucose - Point of Care 299 mg/dl (70-99)
[2023-10-18] MEDS: NOVOLOG FLEXPEN-LOW RESISTANCE 3 UNITS SC (12:30)
--- NOTE | 2023-10-18 13:21 | W.PN.HOSP.TC ---
Today's Communication/Plan
-
EEG tomorrow
eventual rehab placement close to [place]
Assessment / Plan
Assessment / Plan
CT head 10/13
Continued evolution of large subacute right MCA territory infarct with hemorrhagic conversion, measuring up to 4.0 x 6.1 x 5.1 cm. This exerts mild mass effect on the underlying right lateral ventricle without significant midline shift or herniation.
The ventricles are otherwise normal in size, configuration, and position for age.� Stable old left occipital lobe infarct. Visualized paranasal sinuses are free of mucosal disease. No depressed calvarial fracture.
CT abd/pelvis
1. � 3.6 cm in length segment of mild circumferential wall thickening in the mid rectum. Diagnostic possibilities are (1) rectal adenocarcinoma, (2) infectious or inflammatory proctitis, or (3) under distention of the rectal lumen.
2. � Bilateral adrenal masses measuring 3.0 cm in size on the left and 1.2 cm in size on the right. Diagnostic possibilities are (1) benign adrenal tumors (adenomas) or (2) less likely malignancy (metastatic disease).
3. � Moderately enlarged prostate gland.
4. � Small hiatal hernia.
5. � Moderate to severe pancreatic parenchymal atrophy (lipomatosis).
6. � Mild diffuse hepatic steatosis.
7. � Left-sided pelvic kidney.
8. � Severe atherosclerotic plaque in the abdominal aorta.
9. � Severe calcific atherosclerotic plaque in the coronary arteries.
10. � Chronic granulomatous disease infection in the chest.

Acute proctitis
Sepsis POA - Resolved
R/o Rectal/terminal colon malignancy
-Patient complains of rectal pain
-CT abdomen pelvis showing circumferential wall thickening of rectum with possible diagnosis of inflammatory/infectious proctitis versus malignancy
-Got Zosyn in ER, discontinue further abx and monitor.
-Flex sigmoidoscopy normal.
Nausea/vomiting -resolved
-No signs of obstruction
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
-left upper extremity weakness on exam.
-Records from [facility] to be obtained and reviewed.
-CT head 10/13 showing evolving right parietal lobe stroke
-Discussed with neuro and recommended to resume eliquis/plavix post procedure.
Mild TME
-developed post admission on 10/17
-required emergent CT head on 10/17 - normal
-ABG did not show Co2 narcosis
-Gabapentin dose held
-Neuro evaluated and will do 60min EEG on thu.
Afib/RVR
-episodes of tachycardia broke with IV metroprolol today
-resumed back on oral metoprolol 50mg bid
IDDM
- maintain on home regimen of lantus/ISS
Bilateral thigh pain
- sev and sudden onset, no swelling on exam
- suspecting MSK in nature but monitor for reoccurrence
- got 0.5mg dilaudid and sedated from that. would give 0.25mg dilaudid prn if reocurres
HLD
Obesity
Essential HTN
Chronic leg swelling
DVTPPX- eliquis - on hold
Full code
10/18 Family/POA updated post CT head.
Anticipated Discharge: Within 24 hours
Subjective/Interval History
-
Date of Service: October 18, 2023
no acute issues reported
afebrile overnight
Objective Data
-
Vital Signs:
Vital Signs
Temp Pulse Resp BP Pulse Ox
98.6 F 87 17 149/88 96
10/18/23 11:02 10/18/23 11:02 10/18/23 11:02 10/18/23 11:02 10/18/23 11:02
I&O
10/17/23 10/18/23 10/19/23
06:59 06:59 06:59
Intake Total 1260 / 1260 780 / 780
Output Total 975 / 975 350 / 350
Balance 285 / 285 430 / 430
Review of Systems
-
Unable to obtain full review of systems at this time due to: Language Barrier
Physical Exam
-
General: Negative Appears in Distress
HEENT: Oxygen
Respiratory: Clear to Auscultation
Cardiac: Regular Rhythm and S1/S2; Negative Murmur
GI: Soft and Nontender
Neuro: Awake, Alert and Other (Left upper and lower extremity weakness)
[2023-10-18 15:00] VITALS: BP 140/85
[2023-10-18 16:35] LABS: Glucose - Point of Care 233 mg/dl (70-99)
[2023-10-18] MEDS: FLOMAX 0.400000000000000022 MG PO (17:06)
[2023-10-18] MEDS: NOVOLOG FLEXPEN-LOW RESISTANCE 2 UNITS SC (17:07)
[2023-10-18] MEDS: CRESTOR 40 MG PO ×2 (21:04)
[2023-10-18] MEDS: ZETIA 10 MG PO (21:05)
[2023-10-18] MEDS: LIDOCAINE 4% PATCH 1 PATCH TOPICAL (21:05)
[2023-10-18 22:08] LABS: Glucose - Point of Care 223 mg/dl (70-99)
[2023-10-18] MEDS: LANTUS 0.149999999999999994 UNITS SC (22:16)
[2023-10-19 01:01] VITALS: BP 138/77
[2023-10-19 07:00] VITALS: BP 160/100
[2023-10-19 08:04] LABS: Glucose - Point of Care 172 mg/dl (70-99)
--- NOTE | 2023-10-19 08:10 | W.PN.NEURO.1 ---
Today's Communication / Plan
-
-Await EEG
-Would monitor off antiseizure medications, will keep same dosing of divalproex and gabapentin
-If there are further repeated similar events that would need to increase that the proximal dosing to seizure prevention doses
-Minimize sedating medications
-Has been resumed on previous antithrombotic regimen with clopidogrel and Eliquis
Will follow
Neuro Assessment/Plan
Assessment
73 year old man with history of atrial fibrillation, atrial fibrillation, IDDM, hypertension, ischemic cardiomyopathy, recent right MCA stroke in early September who presented with abdominal pain, nausea/vomiting. CT abdomen pelvis showing
thickening of colon concerning for inflammation versus malignancy
Patient was in [facility] in [place] with new diagnosis of CVA on September 28 and was discharged to [facility] on 08 of October
Patient with right MCA syndrome on exam, dysarthria, left sided weakness
10/18 had a 30-45 min episode of unresponsiveness of unclear etiology; no clear convulsive seizure activity; vitals stable, Accucheck normal. Returned to baseline in CT. HCT stable. Suspect confusion following stroke and effects of delirium, [employer]
acting medications produced this, Ddx includes nonconvulsive seizure. CT head stable
Subjective/Objective
Subjective Data
Date of Service: October 19, 2023
No acute events, patient denies pain
Objective Data
Vital Signs
Temp Pulse Resp BP Pulse Ox
98.8 F 98 18 160/100 97
10/19/23 07:00 10/19/23 07:00 10/19/23 07:00 10/19/23 07:00 10/19/23 07:00
Sodium 134 mmol/L (135-145) L 10/17/23 05:29
Potassium 4.1 mmol/L (3.5-5.1) 10/17/23 05:29
BUN 7 mg/dl (9-20) L 10/17/23 05:29
Glucose 202 mg/dl (70-99) H 10/17/23 05:29
Calcium 8.5 mg/dl (8.4-10.2) 10/17/23 05:29
LDL Cholesterol, Calc 23 mg/dl 10/14/23 06:10
Patient Allergies
No Known Allergies Allergy (Verified 10/08/23 23:46)
Review of Systems
-
History Source: Patient
All other systems: Reviewed and negative
Constitutional: No Symptoms
EENT: No Symptoms Reported
Respiratory: No Symptoms
Cardiac: No Symptoms
Abdomen/GI: No Symptoms
Genitourinary: No Symptoms
Musculoskeletal: No Symptoms
Skin: No Symptoms
Neuro: Weakness
Endocrine: No Symptoms
Hematologic / Lymphatic: No Symptoms
Allergy / Immunology: No Symptoms
Physical Exam
-
General: Comfortable
Eyes: No Ptosis
HEENT: Normocephalic
Neck: No Bruits Bilaterally
Respiratory: Clear to Auscultation
Cardiac: Regular Rhythm
GI: Normal Bowel Sounds
Skin: Unremarkable
Extremities: No Clubbing
Psych: Negative Agitated
Extended Neurological Exam
Mood & Affect: Mood Unremarkable and Affect Unremarkable
Attention Span & Concentration: Awake, Alert and Interactive
Memory: Unremarkable
Tremor: Hand Tremor Absent
Involuntary Movement: None
Speech: Dysarthric; Negative Expressive Aphasia or Receptive Aphasia
Cranial Nerve II: Left Eye: Pupillary Reactivity Unremarkable and Pupillary Size Unremarkable
Cranial Nerve II: Right Eye: Pupillary Reactivity Unremarkable and Pupillary Size Unremarkable
Cranial Nerves III, IV, : Extraocular Movement: Extraocular Movement Full in all Directions
Cranial Nerve VII: Facial Symmetry: Other (Left facial weakness)
Muscle Strength, Overall: Other (Left arm 3/5 abduction, left leg 3/5 flexion)
Muscle Bulk & Tone: Bulk Unremarkable
Pronator Drift: Drift in Left Upper Extremity
Data Reviewed
-
CT Head: Report Reviewed and Image Reviewed
EEG: Ordered and Pending
[2023-10-19] MEDS: ELIQUIS 5 MG PO ×2 (09:21→20:08)
[2023-10-19] MEDS: COLCHICINE 0.299999999999999989 MG PO (09:21)
[2023-10-19] MEDS: LEXAPRO 10 MG PO (09:21)
[2023-10-19] MEDS: PLAVIX 75 MG PO (09:21)
[2023-10-19] MEDS: LOPRESSOR 50 MG PO ×2 (09:21→20:08)
[2023-10-19] MEDS: DEPAKOTE SPRINKLE 250 MG PO ×2 (09:21→20:08)
[2023-10-19] MEDS: NOVOLOG FLEXPEN-LOW RESISTANCE 1 UNITS SC (09:26)
[2023-10-19] MEDS: NOVOLOG FLEXPEN 2 UNITS SC ×3 (09:26→17:28)
--- NOTE | 2023-10-19 09:26 | CM ---
Addendum entered by Diana Mary 10/19/23 16:48:
[facility] approval [id number] Sharri Bey [phone]. Patient for rehab to go to [facility] tomorrow.
Addendum entered by Diana Mary 10/19/23 16:47:
[facility] for [facility]
Addendum entered by Diana Mary 10/19/23 16:21:
Updated referrals sent, via all scripts.
Addendum entered by Diana Mary 10/19/23 16:05:
facility indicated that they did not realize that they did not have a contract with the insurance. CM spoke again with Brandon from Insurance company indicated that they have sent request to their director for review in case a one time contract.Facility
indicated that they would accept one time contract if approved. CM also updated patient family about renewed efforts to locate options for SNF. CM will continue to follow for discharge planning needs.
Original Note:
CM called to [facility] and spoke with Sintia. Patient remains 'under review'. Brandon states that it needs a non par redirect, facility is out of network per insurance. CM will call patient family to confirm updated referral to a different facility.
CM will continue to follow for discharge planning needs.
Plan; SNF;
[2023-10-19 11:53] LABS: Glucose - Point of Care 253 mg/dl (70-99)
[2023-10-19] MEDS: ZOFRAN 4 MG IV (13:01)
[2023-10-19 13:12] VITALS: BMI 29.9
--- NOTE | 2023-10-19 13:19 | W.PN.HOSP.TC ---
Today's Communication/Plan
-
check labs
check EEG
d/c planning
Assessment / Plan
Assessment / Plan
pt is a 73 year old Greenlandic speaking male
Acute proctitis with Sepsis POA due to same- Resolved --concern was for malignancy (CT abdomen pelvis showing circumferential wall thickening of rectum with possible diagnosis of inflammatory/infectious proctitis versus malignancy) but flex sig
negative--off ABX
Nausea/vomiting -resolved--No signs of obstruction
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 to be obtained and reviewed--CT head 10/13 showing evolving right parietal lobe stroke-Discussed with neuro and recommended to resume
eliquis/plavix post procedure.
Mild TME --developed post admission on 10/17--required emergent CT head on 10/17 - normal--ABG did not show Co2 narcosis--Gabapentin dose held--Neuro evaluated and will do 60min EEG
presumed permanentAfib/RVR--episodes of tachycardia broke with IV metroprolol today--resumed back on oral metoprolol 50mg bid--cont eliquis, plavix
IDDM- maintain on home regimen of lantus/ISS
Bilateral thigh pain- severe and sudden onset, no swelling on exam- suspecting MSK in nature but monitor for reoccurrence- got 0.5mg dilaudid and sedated from that
HLD--rosuvastatin
Obesity--affects all aspects of care
Essential HTN -- furosemide, lisinopril
Chronic leg swelling
DVTPPX- eliquis - on hold
Full code
Anticipated Discharge: Within 24 hours
Subjective/Interval History
-
Date of Service: October 19, 2023
pt does not speak Estonian--getting EEG
Objective Data
-
Vital Signs:
max temp for 24 hours
10/19/23
07:00
Temp 98.8 F
Vital Signs
Temp Pulse Resp BP Pulse Ox
98.8 F 98 18 160/100 97
10/19/23 07:00 10/19/23 07:00 10/19/23 07:00 10/19/23 07:00 10/19/23 07:00
I&O
10/18/23 10/19/23 10/20/23
06:59 06:59 06:59
Intake Total 780 / 780 450 / 450
Output Total 350 / 350 1050 / 1050
Balance 430 / 430 -600 / -600
Review of Systems
-
Unable to obtain full review of systems at this time due to: Language Barrier
Physical Exam
-
General: Well Developed, Well Nourished and No Apparent Distress
HEENT: Normocephalic, Atraumatic and Other (has EEG wires on head)
Respiratory: Clear to Auscultation; Negative Wheezes or Rhonchi
Cardiac: Regular Rhythm and S1/S2; Negative Murmur
GI: Soft, Nontender, Nondistended and Normal Bowel Sounds
Musculoskeletal: No Clubbing, No Cyanosis and No Edema
--- NOTE | 2023-10-19 13:19 | EEG.RPT ---
Electroencephalogram Report
Recording
Date of EE10/19/23
Type of EEG: Routine
Length of EEG recordin minutes
Done with Video Recording: Yes
Patient Status: Inpatient
Recording Conditions: Awake and Drowsy
Hyperventilation Performed: No
Photic Stimulation Performed: Yes
Report
LESS THAN 1 HOUR EEG REPORT
EEG INTERPRETATION:
Minimally-mild abnormal EEG for age in wakefulness through sleep due to diffuse bihemispheric slowing
CLINICAL CORRELATION:
This study was suggestive of diffuse cortical dysfunction without focal abnormality. No seizures were recorded.
Clinical correlation is advised.
METHODS:
A 21 channel digitized electroencephalogram (EEG) was performed at the bedside. The 10/20 international system of electrode placement was used with ECG and lateral/vertical eye movements recorded. Persyst quantitative EEG analysis was performed.
QUALITY OF STUDY:
Fair-good with muscle artifact
ELECTROENCEPHALOGRAPHER IMPRESSION(S):
Background
Amplitude: Unremarkable
Anterior-Posterior Organization: Fair
Maximum: Alpha, usually theta
Asymmetry: None
Sleep
Drowsiness present
Photic Stimulation
Failed to activate the record
ECG
Normal sinus rhythm
[2023-10-19] MEDS: NOVOLOG FLEXPEN-LOW RESISTANCE 3 UNITS SC (14:22)
[2023-10-19] MEDS: TYLENOL 650 MG PO (14:26)
[2023-10-19 14:44] LABS: Depakane 48.7 ug/ml (50.0-120.0)
[2023-10-19 15:00] VITALS: BP 151/74
[2023-10-19 16:33] LABS: Glucose - Point of Care 391 mg/dl (70-99)
[2023-10-19] MEDS: NOVOLOG FLEXPEN-LOW RESISTANCE 5 UNITS SC (17:28)
[2023-10-19] MEDS: FLOMAX 0.400000000000000022 MG PO (17:28)
[2023-10-19 21:57] LABS: Glucose - Point of Care 196 mg/dl (70-99)
[2023-10-19] MEDS: LANTUS 0.149999999999999994 UNITS SC (22:07)
[2023-10-19] MEDS: LIDOCAINE 4% PATCH 1 PATCH TOPICAL (22:07)
[2023-10-19] MEDS: ZETIA 10 MG PO (22:08)
[2023-10-19 23:25] VITALS: BP 139/88
[2023-10-20 05:40] LABS: Hematocrit 43.3 % (39.0-52.0); Hemoglobin 14.4 g/dL (13.0-18.0); Mean Corp Hgb Conc. 33.3 g/dL (33.0-37.0); Mean Corpuscular Hgb 30.3 pg (27.0-31.0); Mean Corpuscular Volume 91.2 fL (80.0-94.0); Mean Platelet Volume 10.2 fL (7.4-10.4); Platelet Count 299 10^3/uL (130-400); Red Blood Cell Count 4.75 10^6/uL (4.70-6.10); Red Cell Dist. Width 12.2 % (11.5-14.5); White Blood Cell Count 9.2 10^3/uL (4.8-10.8)
[2023-10-20 06:17] LABS: Blood Urea Nitrogen 14 mg/dl (9-20); Calcium 9.1 mg/dl (8.4-10.2); Carbon Dioxide 31 mmol/L (22-30); Chloride 98 mmol/L (98-107); Estimated Creatinine Clearance 78 ml/min; Glucose 225 mg/dl (70-99); Potassium 4.2 mmol/L (3.5-5.1); Sodium 137 mmol/L (135-145); eGFR > 60.00
[2023-10-20 07:00] VITALS: BP 144/86
[2023-10-20 07:36] LABS: Glucose - Point of Care 193 mg/dl (70-99)
--- NOTE | 2023-10-20 07:48 | W.PN.HOSP.TC ---
Today's Communication/Plan
-
d/c
Assessment / Plan
Assessment / Plan
pt is a 73 year old Latvian speaking male
Acute proctitis with Sepsis POA due to same- Resolved --concern was for malignancy (CT abdomen pelvis showing circumferential wall thickening of rectum with possible diagnosis of inflammatory/infectious proctitis versus malignancy) but flex sig
negative--off ABX
Nausea/vomiting -resolved--No signs of obstruction
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
eliquis/plavix post procedure.
Mild TME --developed post admission on 10/17--required emergent CT head on 10/17 - normal--ABG did not show Co2 narcosis--Gabapentin dose held--Neuro evaluated and EEG without seizure activity
presumed permanent Afib/RVR--episodes of tachycardia broke with IV metroprolol today--resumed back on oral metoprolol 50mg bid--cont eliquis, plavix
IDDM- maintain on home regimen of lantus/ISS
Bilateral thigh pain- severe and sudden onset, no swelling on exam- suspecting MSK in nature but monitor for reoccurrence- got 0.5mg dilaudid and sedated from that
HLD--rosuvastatin
Obesity--affects all aspects of care
Essential HTN -- furosemide, lisinopril
Chronic leg swelling
DVTPPX- eliquis - on hold
Full code
ok for d/c
Anticipated Discharge: Today
Subjective/Interval History
-
Date of Service: October 20, 2023
pt sleeping--woke to look at me and went back to sleep
OK for d/c
Objective Data
-
Labs:
Laboratory Results
10/19/23 10/20/23
06:00 05:13
WBC Cancelled 9.2
Hgb Cancelled 14.4
Hct Cancelled 43.3
Plt Count Cancelled 299
Sodium Cancelled 137
Potassium Cancelled 4.2
Chloride Cancelled 98
Carbon Dioxide Cancelled 31 H
BUN Cancelled 14
Creatinine Cancelled 0.9
Glucose Cancelled 225 H
Calcium Cancelled 9.1
Vital Signs:
max temp for 24 hours
10/19/23
15:00
Temp 98.8 F
Vital Signs
Temp Pulse Resp BP Pulse Ox
98.6 F 86 18 144/86 96
10/20/23 07:00 10/20/23 07:00 10/20/23 07:00 10/20/23 07:00 10/20/23 07:00
I&O
10/19/23 10/20/23 10/21/23
06:59 06:59 06:59
Intake Total 450 / 450 630 / 630
Output Total 1050 / 1050 500 / 500
Balance -600 / -600 130 / 130
Review of Systems
-
Unable to obtain full review of systems at this time due to: Other (pt sleeping)
Physical Exam
-
General: Well Developed, Well Nourished and No Apparent Distress
HEENT: Normocephalic and Atraumatic; Negative Oxygen
Respiratory: Clear to Auscultation; Negative Wheezes or Rhonchi
Cardiac: Regular Rhythm and S1/S2; Negative Murmur
GI: Soft, Nontender, Nondistended and Normal Bowel Sounds
Musculoskeletal: No Clubbing, No Cyanosis and No Edema
Psych: Calm (sleeping)
--- NOTE | 2023-10-20 08:16 | CM ---
Patient for transfer to :
[facility] and rehab in [place] address: [address] [place] [address], [facility].
[facility] Nursing report: [phone]
Discharge instructions fax: [phone]
CM faxed transfer forms and will call family to review IMM form. CM will continue to follow for discharge planning needs.
[2023-10-20] MEDS: DEPAKOTE SPRINKLE 250 MG PO (08:22)
[2023-10-20] MEDS: LEXAPRO 10 MG PO (08:22)
[2023-10-20] MEDS: LOPRESSOR 50 MG PO (08:22)
[2023-10-20] MEDS: PLAVIX 75 MG PO (08:22)
[2023-10-20] MEDS: ELIQUIS 5 MG PO (08:22)
[2023-10-20] MEDS: COLCHICINE 0.299999999999999989 MG PO (08:22)
[2023-10-20] MEDS: NOVOLOG FLEXPEN 2 UNITS SC ×2 (08:25→12:11)
[2023-10-20] MEDS: NOVOLOG FLEXPEN-LOW RESISTANCE 1 UNITS SC (08:25)
[2023-10-20 12:05] LABS: Glucose - Point of Care 305 mg/dl (70-99)
[2023-10-20 12:09] VITALS: BP 123/71
[2023-10-20] MEDS: NOVOLOG FLEXPEN-LOW RESISTANCE 4 UNITS SC (12:10)
--- NOTE | 2023-10-20 12:45 | CM ---
Patient family made aware of the time for the transfer, and IMM status. Patient family aware and in agreement.
PLan; SNF today
--- NOTE | 2023-10-21 19:03 | W.DCSUMMARY ---
Discharge Summary
Discharge Data
Date of Admission: 10/12/23
Date of Discharge: 10/20/23
-
Pending Results: No
Hospital Course
Primary care physician : None Listed
Principal Discharge diagnosis : Sepsis present on admission due to acute proctitis, mild toxic metabolic encephalopathy
Chronic Discharge diagnosis : Right parietal lobe CVA with small hemorrhage in past, presumed permanent atrial fibrillation with rapid ventricular response, type 2 diabetes mellitus insulin requiring, bilateral thigh pain, hyperlipidemia, obesity,
essential hypertension, chronic leg swelling
Hospital Course : Patient was a 73-year-old male with multiple medical problems who presented from [facility] with rectal pain and abdominal pain associated with nausea and vomiting. Patient and family were concerned that he was not
receiving proper care there and that he was not eating and drinking there. He speaks only Malay. However it was determined that the patient had dizziness and lightheadedness. He denied fever, chills, chest pain, shortness of breath. CAT scan
done in the emergency department showed mild circumferential wall thickening of the mid rectum and bilateral adrenal masses. Patient was admitted.
Problem #1: Sepsis present on admission due to acute proctitis. Based on the CAT scan result is listed below, concern was for malignancy. Colorectal surgery was consulted and the patient had a flexible sigmoidoscopy but the flex sig was negative.
Initially patient was given Zosyn in the emergency department however further antibiotics were not necessary. Patient's diet was advanced and he was tolerating his diet at discharge.
Problem #2: Mild toxic metabolic encephalopathy. Patient had a history of having a recent right parietal lobe CVA with small hemorrhage. Patient had an episode of encephalopathy and neurology was consulted. Patient actually had 3 CAT scans of his
head; admission CAT scan showed findings consistent with a right MCA infarct with a small amount of internal hemorrhagic conversion: 10/13 CT scan showed continued evolution of the right MCA territory infarct: 10/17 CT scan showed diminished
attenuation related to edema from the right MCA distribution infarct. EEG was done which showed a minimally mild abnormal EEG for age in wakefulness through sleep due to diffuse bihemispheric slowing no seizure activity. Patient mental status
improved by the day of discharge. Eliquis and Plavix were restarted as they were initially on hold with this small hemorrhage noted.
Problem #3: All other medical issues. These include Right parietal lobe CVA with small hemorrhage in past, presumed permanent atrial fibrillation with rapid ventricular response, type 2 diabetes mellitus insulin requiring, bilateral thigh pain,
hyperlipidemia, obesity, essential hypertension, chronic leg swelling. These medical issues were stable during his hospitalization. Medications were continued as able.
Patient was seen in consultation by physical therapy and Occupational Therapy. Family wanted him closer to home in [place] and he has been accepted at [facility] and rehab. Patient is stable for discharge there at this time. If there are
any questions regarding this dictation or his hospital stay, please not hesitate to call. Our office number is [phone].
Time for discharge 31 minutes.
Important imaging findings :
CT SCAN ABDOMEN/PELVIS IMPRESSION:
1. � 3.6 cm in length segment of mild circumferential wall thickening in the mid rectum. Diagnostic possibilities are (1) rectal adenocarcinoma, (2) infectious or inflammatory proctitis, or (3) under distention of the rectal lumen.
2. � Bilateral adrenal masses measuring 3.0 cm in size on the left and 1.2 cm in size on the right. Diagnostic possibilities are (1) benign adrenal tumors (adenomas) or (2) less likely malignancy (metastatic disease).
3. � Moderately enlarged prostate gland.
4. � Small hiatal hernia.
5. � Moderate to severe pancreatic parenchymal atrophy (lipomatosis).
6. � Mild diffuse hepatic steatosis.
7. � Left-sided pelvic kidney.
8. � Severe atherosclerotic plaque in the abdominal aorta.
9. � Severe calcific atherosclerotic plaque in the coronary arteries.
10. � Chronic granulomatous disease infection in the chest.
Procedure findings :
SIGMOIDOSCOPY Impression:�- Stool in the recto-sigmoid colon.
�� � � � � � � � � � � - One diminutive polyp in the rectum.
�� � � � � � � � � � � - The examination was otherwise normal.
�� � � � � � � � � � � - No specimens collected.
Discharge Plan
-
Patient Disposition: [facility]NF
Discharge Diagnosis/Procedures: Acute proctitis with sepsis, nausea/vomiting, right parietal lobe stroke with small hemorrhage, mild toxic metabolic encephalopathy, presumed permanent atrial fibrillation with rapid ventricular response,
insulin-dependent diabetes mellitus type 2, bilateral thigh pain, hyperlipidemia, obesity, essential hypertension, chronic leg swelling
Condition: Fair
Diet: Low Fat and 2 Gram Sodium
Activity: As tolerated
Driving Restrictions: No driving
Bathing Restrictions: OK to Shower
Other Services: PT and OT
Referrals:
UNKNOWN,NO INTERVIEW [Family Provider] - in less than 1 week
Prescriptions:
New
lidocaine 4 % Adhesive Patch,Medicated
1 patch topical HS Qty: 5 0RF
insulin aspart U-100 100 unit/mL (3 mL) Insulin Pen
2 unit SC AC Qty: 0 0RF
Insulin Glargine Lantus [Lantus] 15 UNITS
Subcutaneous Insulin Syringe [Syringe-Insulin] 0 UNIT
As Directed mls/hr SC HS
Reason for use: Diabetes
Ordered By: Antionette Heller MD
Last Taken: 10/19/23 22:07 0.15 mls
Continued
clopidogrel 75 mg Tablet
75 mg PO DAILY
bisacodyl 10 mg Suppository
10 mg IL DAILYPRN PRN (Reason: if mom is ineffective)
colchicine 0.6 mg Tablet
0.3 mg PO DAILY
divalproex 125 mg Capsule, Delayed Rel Sprinkle
250 mg PO BID
apixaban 5 mg Tablet
5 mg PO BID
acetaminophen 325 mg Tablet
650 mg PO Q6H PRN (Reason: mild pain/fever>101)
magnesium hydroxide [Milk of Magnesia] 400 mg/5 mL Suspension
30 ml PO [id number] PRN (Reason: IF NO BM BY 3RD DAY)
tamsulosin 0.4 mg Capsule
0.4 mg PO QPM
metoprolol tartrate 50 mg Tablet
50 mg PO BID
Fleet Enema 19-7 gram/118 mL Enema
118 ml IL DAILY PRN (Reason: if suppository is ineffective)
furosemide 20 mg Tablet
20 mg PO DAILY
lisinopril 2.5 mg Tablet
2.5 mg PO DAILY
escitalopram oxalate 10 mg Tablet
10 mg PO DAILY
ezetimibe 10 mg Tablet
10 mg PO HS
rosuvastatin 40 mg Tablet
40 mg PO HS
Held
cyclobenzaprine 5 mg Tablet
5 mg PO Q8H PRN (Reason: muscle spasms)
Hold Instructions: MD to decide if actually needs
gabapentin 300 mg Capsule
600 mg PO TID
Hold Instructions: pt had episode of unresponsiveness--med on hold--dose might need adjustment or stop altogether
empagliflozin 10 mg Tablet
10 mg PO DAILY
Hold Instructions: MD to decide if needs to restart--med currently on hold
Discontinued
insulin glargine 100 unit/mL Solution
32 unit SC HS
insulin lispro 100 unit/mL Solution
2 unit SC AC
Discharge Orders:
Discharge Patient (As Directed); Ordered 10/20/23
Ordered By: Antionette Heller
Discharge Date and Time
Discharge Date/Time: 10/20/23 13:29
== END 2023-10-20 13:29 | DRG 871 ==
LOC: 3 WEST ACU 16:26
PROVIDERS: Psychiatry & Neurology Neurology; Registered Nurse; ADMITTING PHYSICIAN Hospitalist; ATTENDING PHYSICIAN Internal Medicine; CONSULT PHYSICIAN Psychiatry & Neurology Neurology; CONSULT PHYSICIAN Surgery; EMERGENCY PHYSICIAN Emergency Medicine
PROC: 0DJD8ZZ Inspection of Lower Intestinal Tract, Via Natural or Artificial Opening Endoscopic (ICD-10-PCS; 2023-10-15)
DX: A41.9 Sepsis, unspecified organism (principal); G92.8 Other toxic encephalopathy; I63.511 Cerebral infarction due to unspecified occlusion or stenosis of right middle cerebral artery; E87.20 Acidosis, unspecified; I69.354 Hemiplegia and hemiparesis following cerebral infarction affecting left non-dominant side; I48.21 Permanent atrial fibrillation; K62.89 Other specified diseases of anus and rectum; I95.9 Hypotension, unspecified; K62.1 Rectal polyp; E11.51 Type 2 diabetes mellitus with diabetic peripheral angiopathy without gangrene; I10 Essential (primary) hypertension; E78.00 Pure hypercholesterolemia, unspecified; I25.10 Atherosclerotic heart disease of native coronary artery without angina pectoris; I25.5 Ischemic cardiomyopathy; E86.0 Dehydration; M10.9 Gout, unspecified; E66.9 Obesity, unspecified; K76.0 Fatty (change of) liver, not elsewhere classified; K44.9 Diaphragmatic hernia without obstruction or gangrene; N40.0 Benign prostatic hyperplasia without lower urinary tract symptoms; M79.89 Other specified soft tissue disorders; D71 Functional disorders of polymorphonuclear neutrophils; E27.9 Disorder of adrenal gland, unspecified; K86.89 Other specified diseases of pancreas; F32.A Depression, unspecified; F41.9 Anxiety disorder, unspecified; Z79.02 Long term (current) use of antithrombotics/antiplatelets; Z79.01 Long term (current) use of anticoagulants; Z79.4 Long term (current) use of insulin; Z68.29 Body mass index [BMI] 29.0-29.9, adult
CPT/HCPCS: 36600; 70450; 74177; 80048; 80053; 80061; 80164; 81003; 82805; 82962; 83036; 83605; 83690; 85025; 85027; 86803; 87040; 93005; 95813; 96361; 96365; 96375; 97163; 97167; 97530; 99291; Q9967